=== PATIENT | male | born 1950 | race Caucasian/White ===

== ENCOUNTER → 2016-07-20 | Outpatient (CLI) | payer BC, MEDICARE, OTHER ==
[2016-07-20 09:06] LABS: MEAN CORPUSCULAR HEMOGLOBIN 32.5 pg (27.0-33.0); MEAN CORPUSCULAR HGB CONC 34.4 g/dl (32.0-36.5); MEAN CORPUSCULAR VOLUME 94.4 fl (80.0-96.0); RED CELL DISTRIBUTION WIDTH 12.1 % (11.5-14.5); WHITE BLOOD COUNT 8.1 K/mm3 (4.0-10.0)
[2016-07-20 09:25] LABS: ALBUMIN 3.7 GM/DL (3.2-5.2); ALBUMIN/GLOBULIN RATIO 1.23 (1.00-1.93); ALKALINE PHOSPHATASE 58 U/L (45-117); ALT/SGPT 21 U/L (12-78); ANION GAP 4 MEQ/L (8-16); AST/SGOT 17 U/L (15-37); BLOOD UREA NITROGEN 13 MG/DL (7-18); CALCIUM LEVEL 8.6 MG/DL (8.8-10.2); CARBON DIOXIDE LEVEL 31 MEQ/L (21-32); CHLORIDE LEVEL 105 MEQ/L (98-107); CHOLESTEROL LEVEL 185 MG/DL (<200); GLOMERULAR FILTRATION RATE > 60.0 (>49); GLUCOSE, FASTING 93 MG/DL (80-110); POTASSIUM SERUM 4.8 MEQ/L (3.5-5.1); SODIUM LEVEL 140 MEQ/L (136-145); TOTAL PROTEIN 6.7 GM/DL (6.4-8.2); TRIGLYCERIDES LEVEL 126 MG/DL (<150)
== END ==
LOC: M LAB 08:13
PROVIDERS: ATTEND Family Medicine
DX: I25.10 Atherosclerotic heart disease of native coronary artery without angina pectoris (principal)

== ENCOUNTER → 2017-03-08 | Outpatient (CLI) | payer BC, MEDICARE, OTHER ==
[~2017-03-08] MED LIST: ADV250INH INH; AMOX875T2 PO; BAYE325T13 PO; BIMA01SOL OU; BISO5TAB5 PO; ISOS30TAB PO; LOVA40TA PO; PEPC10TA6 PO; PERI4TAB PO; PLAV1TAB2 PO; POTA20TA6 PO; PROAAER10 INH; RANO5TAB PO; TORS5TAB2 PO
[2017-03-08 08:30] LABS: MEAN CORPUSCULAR HEMOGLOBIN 32.2 pg (27.0-33.0); MEAN CORPUSCULAR VOLUME 94.7 fl (80.0-96.0); PLATELET COUNT, AUTOMATED 196 10^3/uL (150-450); RED CELL DISTRIBUTION WIDTH 12.1 % (11.5-14.5); WHITE BLOOD COUNT 14.2 10^3/uL (4.0-10.0)
[2017-03-08 09:56] LABS: ALBUMIN 3.9 GM/DL (3.2-5.2); ALKALINE PHOSPHATASE 57 U/L (45-117); ALT/SGPT 22 U/L (12-78); ANION GAP 8 MEQ/L (8-16); AST/SGOT 11 U/L (15-37); BILIRUBIN,TOTAL 0.6 MG/DL (0.2-1.0); BLOOD UREA NITROGEN 14 MG/DL (7-18); CALCIUM LEVEL 8.7 MG/DL (8.8-10.2); CARBON DIOXIDE LEVEL 28 MEQ/L (21-32); CHLORIDE LEVEL 105 MEQ/L (98-107); CHOLESTEROL LEVEL 162 MG/DL (<200); CREATININE FOR GFR 1.13 MG/DL (0.70-1.30); GLOMERULAR FILTRATION RATE > 60.0 (>49); GLUCOSE, FASTING 107 MG/DL (80-110); POTASSIUM SERUM 4.6 MEQ/L (3.5-5.1); SODIUM LEVEL 141 MEQ/L (136-145); TOTAL PROTEIN 6.9 GM/DL (6.4-8.2); TRIGLYCERIDES LEVEL 86 MG/DL (<150)
== END ==
LOC: M LAB 07:38
PROVIDERS: ATTEND Family Medicine
DX: I25.10 Atherosclerotic heart disease of native coronary artery without angina pectoris (principal)
CPT/HCPCS: 36415; 80053; 80061; 85027; G0103

== ENCOUNTER 2017-03-24 23:34 | Inpatient (IN) | payer BC, MEDICARE, OTHER ==
[~2017-03-24] VITALS: Ht 165.1 cm; Wt 87.7 kg
[2017-03-24] MEDS ORDERED: PERI4TAB PO (23:49)
[2017-03-24] MEDS ORDERED: PROAAER10 INH (23:49)
[2017-03-24] MEDS ORDERED: TORS5TAB2 PO (23:49)
[2017-03-24] MEDS ORDERED: RANO5TAB PO (23:49)
[2017-03-24] MEDS ORDERED: BISO5TAB5 PO (23:49)
[2017-03-24] MEDS ORDERED: POTA20TA6 PO (23:49)
[2017-03-24] MEDS ORDERED: PEPC10TA6 PO (23:49)
[2017-03-24] MEDS ORDERED: ISOS30TAB PO (23:49)
[2017-03-24] MEDS ORDERED: LOVA40TA PO (23:49)
[2017-03-24] MEDS ORDERED: ADV250INH INH (23:49)
[2017-03-24] MEDS ORDERED: BIMA01SOL OU (23:49)
[2017-03-24] MEDS ORDERED: PLAV1TAB2 PO (23:49)
[2017-03-25] MEDS ORDERED: KETOROLAC 30 MG/ML VIAL (J1885) IV ONE (00:15)
[2017-03-25] MEDS ORDERED: LEVALBUTEROL 1.25 MG/0.5 ML CONCENTRATE NEB INH ONE (00:15)
[2017-03-25 00:34] LABS: BASO % 0.2 % (0.0-1.0); EOS # 0.2 10^3/uL (0.0-0.50); EOS % 1.9 % (0.0-3.0); IMMATURE GRANULOCYTE % 0.8 % (0-0); LYMPH # 1.8 10^3/uL (1.5-4.5); MEAN CORPUSCULAR HEMOGLOBIN 32.2 pg (27.0-33.0); MEAN CORPUSCULAR VOLUME 92.2 fl (80.0-96.0); MONO # 1.2 10^3/uL (0.0-0.8); MONO % 9.8 % (0.0-5.0); NEUTROPHILS # 9.2 10^3/uL (1.8-7.7); NEUTROPHILS % 73.3 % (36.0-66.0); PLATELET COUNT, AUTOMATED 213 10^3/uL (150-450); RED CELL DISTRIBUTION WIDTH 11.9 % (11.5-14.5); WHITE BLOOD COUNT 12.5 10^3/uL (4.0-10.0)
[2017-03-25 00:57] LABS: INR 0.93
[2017-03-25] MEDS ORDERED: METOCLOPRAMIDE INJ 10MG/2ML VIAL (J2765) IV ONE (01:00)
[2017-03-25] MEDS ORDERED: ISOVUE-370 76% 100ML VIAL (Q9967) As Ordered ONE (01:02)
[2017-03-25 01:03] LABS: ALBUMIN 3.3 GM/DL (3.2-5.2); ALBUMIN/GLOBULIN RATIO 1.03 (1.00-1.93); ALKALINE PHOSPHATASE 68 U/L (45-117); ALT/SGPT 25 U/L (12-78); ANION GAP 6 MEQ/L (8-16); AST/SGOT 15 U/L (7-37); BILIRUBIN,DIRECT 0.1 MG/DL (0.0-0.2); BILIRUBIN,TOTAL 0.5 MG/DL (0.2-1.0); BLOOD UREA NITROGEN 20 MG/DL (7-18); CALCIUM LEVEL 9.5 MG/DL (8.8-10.2); CARBON DIOXIDE LEVEL 29 MEQ/L (21-32); CHLORIDE LEVEL 102 MEQ/L (98-107); CREATININE FOR GFR 1.15 MG/DL (0.70-1.30); GLOMERULAR FILTRATION RATE > 60.0 (>49); GLUCOSE, FASTING 109 MG/DL (80-110); POTASSIUM SERUM 4.2 MEQ/L (3.5-5.1); SODIUM LEVEL 137 MEQ/L (136-145); TOTAL PROTEIN 6.5 GM/DL (6.4-8.2)
[2017-03-25 01:04] LABS: ABG BASE EXCESS 4.6 (-2.0-2.0); ABG HCO3 23.4 MEQ/L (22.0-26.0); ABG PARTIAL PRESSURE CO2 22.2 mmHg (35.0-45.0); ABG STANDARD HCO3 28.7 MEQ/L (22.0-26.0); ABG TOTAL CO2 24.1 MEQ/L (23.0-31.0)
[2017-03-25 01:06] LABS: ABG pH (ARTERIAL) 7.641 UNITS (7.350-7.450)
[2017-03-25] MEDS ORDERED: NS 1,000 ML IV ONE (01:45)
[2017-03-25] MEDS ORDERED: BAYE325T13 PO (02:20)
--- NOTE | 2017-03-25 02:40 | REPUSA ---
CLINICAL HISTORY: Abdominal pain. TECHNIQUE: Multiple axial and coronal CT images were obtained through the abdomen and pelvis after ad ministration of intravenous contrast material. COMMENTS: Mild peripancreatic fat stranding. Diffuse thickening and enhancement of the proximal small bowels. Surrounding inflammatory fat stranding. Moderate amount of fecal residue in the large bowels. Uncomplicated colonic diverticulosis. The liver is of uniform attenuation without mass or defect. There is no intra or extrahepatic biliary ductal dilatation. The spleen is normal. The gallbladder is within normal limits. There is no eviden ce of adrenal mass. Both kidneys demonstrate prompt and equal nephrograms. The kidneys are normal in size, shape and conf iguration. There is no evidence of renal or ureteral mass. No renal or ureteral calculi are identifie d. There is no hydroureter or hydronephrosis. No evidence for appendicitis. No evidence for small or large bowel obstruction. There is no evidence of abdominal ascites or lymphadenopathy. There is no evidence of intrinsic or extrinsic bladder mass. There is no pelvic ascites or lymphadeno darius. Images of the lung bases show no evidence of pleural or parenchymal mass. There are no pleural effusi ons. The bony structures are free of lytic or blastic lesions. IMPRESSION: Mild peripancreatic fat stranding. Probably mild pancreatitis. Diffuse thickening and enhancement of the proximal small bowels. Mild enteritis. Surrounding inflammatory fat stranding. No bowel perforation or pneumatosis intestinalis. Moderate amount of fecal residue in the large bowels. No fluid collection is seen. Thank you for your kind referral of this patient.
[2017-03-25 05:25] VITALS: BP 141/85
[2017-03-25] MEDS: KCL 10MEQ IN D5/0.45NS 1000ML 1,000 ML IV SCH ×2 (06:18→15:19)
[2017-03-25] MEDS: KETOROLAC 30 MG/ML VIAL (J1885) IV PRN ×3 (06:18→18:49)
--- NOTE | 2017-03-25 06:24 | HPE ---
DATE OF ADMISSION: 03/25/2017 PRIMARY CARE PHYSICIAN: Bipin White. PRINCIPAL BIOSTATISTICIAN: Dr. Teo Mason. CHIEF COMPLAINT: Left upper quadrant abdominal pain. HISTORY OF PRESENTING ILLNESS: 67-year-old male presents to the emergency room with acute onset of left upper quadrant pain occurring around 5 p.m. this afternoon described as sharp, achy and constant, radiating along the left flank without alleviating or exacerbating factors with associated nausea without vomiting, diaphoresis, left anterior chest pain. No medications were taken at home. No prior episodes. Denies any history of gallstones, reflux, recent trauma or history of familial hypertriglyceridemia. Patient was found to have a lipase level of 5980. Troponin was less than 0.02. EKG had no acute ST-T wave changes. CT abdomen and pelvis shows mild pancreatitis. Patient otherwise denies any fevers, chills, constipation, diarrhea, rhinorrhea, sore throat, earache, nasal congestion, headaches, eye pain, nasal discharge, shortness of breath, palpitations, lightheadedness, dizziness, cough, dysuria, urgency, frequency, fever, chills, upper and lower extremity paresthesias or weakness. Hospitalist service was called for admission for mild pancreatitis and further evaluation of patient's chest pain. PAST MEDICAL HISTORY: 1. Coronary artery disease (CAD), myocardial infarction (NV), coronary artery bypass graft (CABG). 2. Hypercholesterolemia. 3. Stent. 4. Asthma. 5. Adenomatous colonic polyp. 6. Gastrointestinal (GI) bleed after polypectomy. 7. BPH. 8. Osteoarthritis. 9. Right cranial nerve IV palsy. 10. DO NOT RESUSCITATE. ALLERGIES: To DEMEROL causing hallucinations, MORPHINE hallucinations, SIMVASTATIN, ATORVASTATIN myalgias, ZETIA myalgias. PAST SURGICAL HISTORY: 1. Cardiac catheterization with stent 1993, 2006, 2007, 2010. 2. CABG in 1993, July 2006, November 2007. 3. Colonoscopy by Dr. Jacobson December 2002, February 2006. FAMILY HISTORY: Father age 82 with heart attack. Mother age 84 with hypertension, Alzheimer's. Sibling, brother 11 months, questionable congenital heart disorder. SOCIAL HISTORY: Never a smoker, occasional wine. No recreational drug use. 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 . Patient is DO NOT RESUSCITATE filed at [facility] ([facility]), cardiology. HOME MEDICATIONS: - ProAir HFA two puffs every four as needed - aspirin 325 daily - bisoprolol 2.5 daily - Plavix 75 daily - isosorbide dinitrate 60 mg three times a day - lovastatin 80 mg every evening - potassium chloride 20 daily - Ranexa 500 twice a day - Advair Diskus one puff twice a day - torsemide 5 mg daily - Lumigan one drop both eyes nightly - famotidine 20 every evening - perindopril 4 mg every evening REVIEW OF SYSTEMS: Per history of present illness (HPI), 12-point system otherwise negative. PHYSICAL EXAMINATION: VITAL SIGNS: Temperature 97.7, pulse 75, respiratory rate 22, blood pressure 127/77, 95% on room air. GENERAL: Patient is awake, alert, oriented times three, answering questions appropriately. Anicteric sclerae. No jaundice. Pupils are round and reactive to light and accommodation. Extraocular muscles are intact. Normocephalic, atraumatic. No pharyngeal erythema, tonsillar exudates, cervical lymphadenopathy or jugular venous distention. No thyromegaly. LUNGS: Clear to auscultation. No wheezing, rales or rhonchi. HEART: S1, S2, sinus rhythm. ABDOMEN: Soft, tender left upper quadrant. No rebound, guarding. Positive bowel sounds times four quadrants. EXTREMITIES: No cyanosis, clubbing or pitting edema. SKIN: Patient has a well-healed mid sternal scar from prior CABG. LABORATORY DATA: White count 12.5, hemoglobin 15, hematocrit 45, platelet count 213. Sodium 137, potassium 4.2, chloride 102, bicarbonate 29, BUN 20, creatinine 1.15, glucose 109, calcium 9.5, total bilirubin 0.5, direct bilirubin 0.1, AST 15, ALT 25, alkaline phosphatase 68, total CK 70, MB fraction 1.1, troponin less than 0.02. C-reactive protein 1.71. BNP 66. Total protein 6.5, albumin 3.3, lipase 5980. TSH 2.56. 03/25/2017 respiratory panel human rhinovirus, enterovirus. Blood culture, sputum culture pending. CT abdomen and pelvis mild peripancreatic fat stranding, mild pancreatitis, diffuse thickening enhancement of the proximal small bowel with mild enteritis. No bowel perforation. Pneumatosis intestinalis, moderate amount of fecal residue in large bowel. No fluid collection. ASSESSMENT AND PLAN: This is a 67-year-old male with history of coronary artery disease (CAD), myocardial infarction (NV), stent, coronary artery bypass graft (CABG), dyslipidemia, asthma, arthritis, colonic polyps, gastrointestinal (GI) bleed, DO NOT RESUSCITATE, presents to the emergency room with acute onset of left upper quadrant pain described as sharp, radiating to the back, found to have a lipase level of 5980. Due to prior history of CAD, NV and CABG, patient was evaluated for acute coronary syndrome with negative troponin and no acute ST-T wave changes on EKG. Patient will be admitted as an inpatient for two midnights assigned to Dr. Bipin White 7 a.m. on 03/25/2017 for the following issues: 1. Acute pancreatitis. Patient will be kept nothing by mouth, intravenous (IV) fluids, monitor intake and output (I and O) and daily weight. As needed Toradol. Patient is allergic to opioids. Monitor for congestive heart failure. CT abdomen and pelvis showed no gallbladder wall thickening, dilatation or gallstones. Will check fasting lipid profile, but unlikely to have familial hypertriglyceridemia. No history of trauma or elevated calcium level. Denies any history of alcohol abuse. Monitor for symptomatic improvement. Advance diet as tolerated. If pain is resolved, recheck lipase level. 2. Chest pain, history of CAD, NV, CABG. Cycle cardiac markers every 8 hours. Repeat 12-lead EKG at 6 a.m. Continue home medications of aspirin, Ranexa, Plavix, isosorbide, and Zebeta. 3. History of asthma. No acute wheezing. Continue on Proventil as needed. 4. Hyperlipidemia. Continue on Zocor. Check fasting lipid profile. 5. History of GI bleed. No acute symptoms. Monitor hemoglobin and hematocrit if patient becomes symptomatic. 6. Deep venous thrombosis (DVT) prophylaxis on compression stockings. Patient will be assigned to Dr. Bipin White at 7 a.m. on 03/25/2017.
[2017-03-25] MEDS ORDERED: MIRALAX *UNIT DOSE* 17GM PACKET PO PRN (08:15)
[2017-03-25 08:28] LABS: BASO % 0.1 % (0.0-1.0); EOS # 0.2 10^3/uL (0.0-0.50); EOS % 1.3 % (0.0-3.0); IMMATURE GRANULOCYTE % 0.5 % (0-0); LYMPH # 1.8 10^3/uL (1.5-4.5); LYMPH % 14.8 % (24.0-44.0); MEAN CORPUSCULAR HEMOGLOBIN 32.2 pg (27.0-33.0); MEAN CORPUSCULAR HGB CONC 34.5 g/dl (32.0-36.5); MEAN CORPUSCULAR VOLUME 93.2 fl (80.0-96.0); MONO # 1.2 10^3/uL (0.0-0.8); MONO % 10.5 % (0.0-5.0); NEUTROPHILS # 8.6 10^3/uL (1.8-7.7); NEUTROPHILS % 72.8 % (36.0-66.0); PLATELET COUNT, AUTOMATED 183 10^3/uL (150-450); WHITE BLOOD COUNT 11.9 10^3/uL (4.0-10.0)
[2017-03-25] MEDS: CLOPIDOGREL 75 MG TAB PO SCH (08:31)
[2017-03-25] MEDS: RANOLAZINE 500 MG ER TAB PO SCH ×2 (08:31→20:51)
[2017-03-25] MEDS: POTASSIUM CHLORIDE 10 MEQ SR TABLET PO SCH (08:31)
[2017-03-25] MEDS: ISOSORBIDE DIN. (ISORDIL) 30 MG TAB PO SCH ×3 (08:31→20:51)
[2017-03-25] MEDS: BISOPROLOL FUMARATE 5 MG TAB PO SCH (08:32)
--- NOTE | 2017-03-25 08:33 | IPNPDOC ---
Subjective Date Seen The patient was seen on 03/25/17. Subjective Chief Complaint/HPI The patient is a 67-year-old male admitted with a reason for visit of Acute Pancreatitis. Events since last encounter continues with LUQ pain. Relieved with Toradol prn. Patient feels dehydrated, cracked lips, dry mouth. Receiving D5 1/2NS with 10 mew KCL at 100 cc per hour. Constitutional: Denies: Chills, Fever, Night Sweats ENT: Denies: Head Aches, Ear Pain, Dysphagia Skin: Denies: Rash, Lesions, Breakdown Pulmonary: Reports: Cough, Denies: Dyspnea Cardiovascular: Denies: Chest Pain, Palpitations, Orthopnea, Paroxysmal Noc. Dyspnea, Lt Headedness Gastrointestinal: Reports: Nausea, Abdominal Pain, Constipation, Denies: Vomiting, Diarrhea Genitourinary: Denies: Dysuria, Frequency, Incontinence, Retention Psych: Reports: Mood Normal, Denies: Depression, Memory Issues Objective Physical Examination General Exam: Positive: Alert, No Acute Distress Eye Exam: Positive: PERRLA, Conjunctiva & lids normal, EOMI, Negative: Sclera icteric ENT Exam: Positive: Atraumatic, Mucous membr. moist/pink, Pharynx Normal Neck Exam: Positive: Supple, Negative: JVD, thyromegaly Chest Exam: Positive: Clear to auscultation, Normal air movement Heart Exam: Positive: Rate Normal, Regular Rhythm, Normal S1, Normal S2, Negative: Murmurs, Rubs Abdomen Exam: Positive: BS Hypoactive, Soft, Tenderness (LUQ), Negative: Hepatospenomegaly Extremity Exam: Positive: Normal pulses, Negative: Clubbing, Cyanosis, Edema Skin Exam: Positive: Nl turgor and temperature, Negative: Rash, Breakdown Psych Exam: Positive: Mental status NL, Mood NL, Oriented x 3 Assessment /Plan Problems (1) Acute pancreatitis Status: Acute Problem Specific Plan: Monitor Clinically Problem Text: continue NPO and IVF. Repeat labs this am. (2) Fecal retention Problem Text: Noted on CT scan. Will give Miralax today. KUB (3) CAD (coronary artery disease) Problem Text: echo 2017: EF 60% On routine home medications. Monitor for fluid volume overload (4) HTN (hypertension) Status: Chronic Response to Treatment: Stable Problem Specific Plan: Monitor Clinically Plan/VTE VTE Prophylaxis Ordered?: Yes (Plavix) VS, I&O[facility] Signs/I&O Vital Signs Date Time Temp Pulse Resp B/P (MAP) Pulse Ox O2 Delivery O2 Flow Rate FiO2 03/25/17 05:25 97.2 69 18 141/85 (103) 94 Room Air Laboratory Data 24H LABS Laboratory Tests 2 03/25/17 00:22: Immature Granulocyte % (Auto) 0.8H, White Blood Count 12.5H, Red Blood Count 4.90, Hemoglobin 15.8, Hematocrit 45.2, Mean Corpuscular Volume 92.2, Mean Corpuscular Hemoglobin 32.2, Mean Corpuscular Hemoglobin Concent 35.0, Red Cell Distribution Width 11.9, Platelet Count 213, Neutrophils (%) (Auto) 73.3H, Lymphocytes (%) (Auto) 14.0L, Monocytes (%) (Auto) 9.8H, Eosinophils (%) (Auto) 1.9, Basophils (%) (Auto) 0.2, Neutrophils # (Auto) 9.2H, Lymphocytes # (Auto) 1.8, Monocytes # (Auto) 1.2H, Eosinophils # (Auto) 0.2, Basophils # (Auto) 0.0, Immature Granulocyte # (Auto) 0.1H, Nucleated Red Blood Cells % (auto) 0.0, Prothrombin Time 12.6, Prothromb Time International Ratio 0.93, Activated Partial Thromboplast Time 27.0, Anion Gap 6L, Glomerular Filtration Rate > 60.0 , Calcium Level 9.5, Aspartate Amino Transf (AST/SGOT) 15, Alanine Aminotransferase (ALT/SGPT) 25, Alkaline Phosphatase 68, Total Bilirubin 0.5, Direct Bilirubin 0.1, Total Creatine Kinase 70, Creatine Kinase MB 1.1, Creatine Kinase MB Relative Index 1.57, Troponin I < 0.02, C-Reactive Protein, Quantitative 1.71H, AH-Yru-P-Type Natriuretic Peptide 66, Total Protein 6.5, Albumin 3.3, Albumin/Globulin Ratio 1.03, Lipase 5980H, Thyroid Stimulating Hormone (TSH) 2.560, Free Thyroxine 1.00 03/25/17 00:46: Blood Gas Bicarbonate Standard 28.7H, Arterial Blood pH 7.641*H, Arterial Blood Partial Pressure CO2 22.2L, Arterial Blood Partial Pressure O2 102.0H, Arterial Blood Total CO2 24.1, Arterial Blood HCO3 23.4, Arterial Blood Base Excess 4.6H , Arterial Blood Oxygen Saturation 98.6 03/25/17 08:08: CBC/BMP Laboratory Tests 03/25/17 00:22 Red Blood Count 4.90, Mean Corpuscular Volume 92.2, Mean Corpuscular Hemoglobin 32.2, Mean Corpuscular Hemoglobin Concent 35.0, Red Cell Distribution Width 11.9 , Neutrophils (%) (Auto) 73.3 H, Lymphocytes (%) (Auto) 14.0 L, Monocytes (%) ( Auto) 9.8 H, Eosinophils (%) (Auto) 1.9, Basophils (%) (Auto) 0.2, Neutrophils # (Auto) 9.2 H, Lymphocytes # (Auto) 1.8, Monocytes # (Auto) 1.2 H, Eosinophils # (Auto) 0.2, Basophils # (Auto) 0.0 Microbiology Microbiology 03/25/17 Blood Culture, Received Pending 03/25/17 Blood Culture, Received Pending 03/25/17 Gram Stain, Received Pending 03/25/17 Sputum Culture, Received Pending 03/25/17 Respiratory Virus Panel (PCR) ([facility]ANKET) - Final, Complete Human Rhinovirus/Enterovirus Regla Suazo Mar 25, 2017 08:33
[2017-03-25 09:04] LABS: ALBUMIN 3.1 GM/DL (3.2-5.2); ALBUMIN/GLOBULIN RATIO 1.19 (1.00-1.93); ALKALINE PHOSPHATASE 54 U/L (45-117); ALT/SGPT 22 U/L (12-78); AMYLASE 142 U/L (25-115); ANION GAP 8 MEQ/L (8-16); AST/SGOT 9 U/L (7-37); BILIRUBIN,TOTAL 0.8 MG/DL (0.2-1.0); BLOOD UREA NITROGEN 19 MG/DL (7-18); CALCIUM LEVEL 8.7 MG/DL (8.8-10.2); CARBON DIOXIDE LEVEL 27 MEQ/L (21-32); CHLORIDE LEVEL 104 MEQ/L (98-107); CREATININE FOR GFR 1.07 MG/DL (0.70-1.30); GLOMERULAR FILTRATION RATE > 60.0 (>49); GLUCOSE, FASTING 109 MG/DL (80-110); POTASSIUM SERUM 4.2 MEQ/L (3.5-5.1); SODIUM LEVEL 139 MEQ/L (136-145); TOTAL PROTEIN 5.7 GM/DL (6.4-8.2)
--- NOTE | 2017-03-25 10:57 | REP ---
SUPINE ABDOMEN: 03/25/2017. Comparison: CT abdomen pelvis earlier today. Clinical history: Hypoactive bowel sounds, abdominal pain, constipation suggested on CT scan. Findings: There is some trace amount of contrast in the bladder and collecting system of the kidneys without obstruction. This is from IV contrast earlier today. Mild levoconvex curve of the lumbar spine with degenerative disc and facet changes from L3-4 through L5-S1. SI joints intact. Hips with minimal degenerative change. Moderate stool right colon with scattered stool elsewhere. This does not define constipation. No small bowel dilatation or other signs of obstruction. Impression: 1. No evidence for constipation. There is some moderate stool in the right colon with scattered stool and gas elsewhere without dilatation. No small bowel dilatation. 2. Degenerative changes lower lumbar spine and facets. 3. A few pelvic phleboliths but no significant abdominal or pelvic calcifications. Nothing acute. Signed by Meño Narvaez MD 03/25/2017 10:49 A
[2017-03-25 14:00] VITALS: BP 136/70
[2017-03-25] MEDS ORDERED: ONDANSETRON 4MG/2ML VIAL (J2405) As Ordered ONE (17:55)
[2017-03-25] MEDS: ONDANSETRON 4MG/2ML VIAL (J2405) IV PRN (17:59)
[2017-03-25] MEDS: SIMVASTATIN 40 MG TAB PO SCH (20:51)
[2017-03-25] MEDS: ASPIRIN 325 MG TAB PO SCH (20:51)
--- NOTE | 2017-03-25 21:16 | ECGEPIP ---
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
[2017-03-25 22:00] VITALS: BP 114/66
[2017-03-26] MEDS: ALBUTEROL 90 MCG/ACT 8GM HFA INHALER INH PRN ×2 (00:23→15:00)
[2017-03-26] MEDS: KETOROLAC 30 MG/ML VIAL (J1885) IV PRN ×4 (02:12→16:08)
[2017-03-26 06:00] VITALS: BP 128/79
[2017-03-26 07:07] LABS: BASO % 0.1 % (0.0-1.0); EOS # 0.2 10^3/uL (0.0-0.50); EOS % 1.7 % (0.0-3.0); IMMATURE GRANULOCYTE % 0.5 % (0-0); LYMPH # 1.3 10^3/uL (1.5-4.5); LYMPH % 9.7 % (24.0-44.0); MEAN CORPUSCULAR HEMOGLOBIN 32.2 pg (27.0-33.0); MEAN CORPUSCULAR HGB CONC 34.2 g/dl (32.0-36.5); MEAN CORPUSCULAR VOLUME 94.1 fl (80.0-96.0); MONO # 1.5 10^3/uL (0.0-0.8); MONO % 11.1 % (0.0-5.0); NEUTROPHILS # 10.2 10^3/uL (1.8-7.7); NEUTROPHILS % 76.9 % (36.0-66.0); PLATELET COUNT, AUTOMATED 166 10^3/uL (150-450); RED CELL DISTRIBUTION WIDTH 11.9 % (11.5-14.5); WHITE BLOOD COUNT 13.3 10^3/uL (4.0-10.0)
[2017-03-26 07:29] LABS: ALBUMIN 2.7 GM/DL (3.2-5.2); ALBUMIN/GLOBULIN RATIO 0.82 (1.00-1.93); ALKALINE PHOSPHATASE 46 U/L (45-117); ALT/SGPT 16 U/L (12-78); AMYLASE 73 U/L (25-115); ANION GAP 7 MEQ/L (8-16); AST/SGOT 12 U/L (7-37); BILIRUBIN,TOTAL 1.2 MG/DL (0.2-1.0); BLOOD UREA NITROGEN 16 MG/DL (7-18); CALCIUM LEVEL 8.5 MG/DL (8.8-10.2); CARBON DIOXIDE LEVEL 27 MEQ/L (21-32); CHLORIDE LEVEL 103 MEQ/L (98-107); CHOLESTEROL LEVEL 132 MG/DL (<200); CREATININE FOR GFR 1.14 MG/DL (0.70-1.30); GLOMERULAR FILTRATION RATE > 60.0 (>49); GLUCOSE, FASTING 89 MG/DL (80-110); POTASSIUM SERUM 4.6 MEQ/L (3.5-5.1); SODIUM LEVEL 137 MEQ/L (136-145); TRIGLYCERIDES LEVEL 100 MG/DL (<150)
[2017-03-26] MEDS: ALBUTEROL SULFATE 2.5 MG/0.5 ML INH NEB SOLN NEB SCH ×5 (08:00→23:08)
[2017-03-26] MEDS: RANOLAZINE 500 MG ER TAB PO SCH ×2 (08:46→21:26)
[2017-03-26] MEDS: ISOSORBIDE DIN. (ISORDIL) 30 MG TAB PO SCH ×3 (08:46→21:26)
[2017-03-26] MEDS: BISOPROLOL FUMARATE 5 MG TAB PO SCH (08:46)
[2017-03-26] MEDS: CLOPIDOGREL 75 MG TAB PO SCH (08:47)
[2017-03-26] MEDS: POTASSIUM CHLORIDE 10 MEQ SR TABLET PO SCH (08:47)
[2017-03-26] MEDS ORDERED: NITROGLYCERIN 0.4 MG SUBL TABLET SL PRN (09:15)
--- NOTE | 2017-03-26 09:29 | IPNPDOC ---
Subjective Date Seen The patient was seen on 03/26/17. Subjective Chief Complaint/HPI The patient is a 67-year-old male admitted with a reason for visit of Acute Pancreatitis. Events since last encounter c/o uncontrolled asthma. Has been out of his Advair for 3 days. Was previously on Prednisone by PCP for URI. Continues with nausea w/o vomiting. States urine output has slowed. Constitutional: Denies: Chills, Fever, Night Sweats Eyes: Denies: Pain, Vision change Skin: Denies: Rash, Lesions, Breakdown Pulmonary: Reports: Cough, Other Symptoms (SPB), Denies: Dyspnea Cardiovascular: Denies: Chest Pain, Palpitations, Orthopnea Gastrointestinal: Reports: Nausea, Abdominal Pain, Denies: Vomiting, Diarrhea, Constipation Genitourinary: Reports: Other Symptoms (decreased UO) Objective Physical Examination General Exam: Positive: Alert, No Acute Distress Eye Exam: Positive: PERRLA, Conjunctiva & lids normal, EOMI, Negative: Sclera icteric ENT Exam: Positive: Atraumatic, Mucous membr. moist/pink, Pharynx Normal Neck Exam: Positive: Supple, Negative: JVD, thyromegaly Chest Exam: Positive: Clear to auscultation, Normal air movement Heart Exam: Positive: Rate Normal, Regular Rhythm, Normal S1, Normal S2, Negative: Murmurs, Rubs Abdomen Exam: Positive: BS Hypoactive, Soft, Tenderness (LUQ), Negative: Hepatospenomegaly Extremity Exam: Positive: Normal pulses, Negative: Clubbing, Cyanosis, Edema Skin Exam: Positive: Nl turgor and temperature, Negative: Rash, Breakdown Psych Exam: Positive: Mental status NL, Mood NL, Oriented x 3 Assessment /Plan Problems (1) Acute pancreatitis Status: Acute Problem Specific Plan: Monitor Clinically Problem Text: 03/26: Lipase trending down. Now with elevated bilirubin. Will eval US abdomen. Attempted clears last night, unsuccessful due to nausea. Will resume IVF continue NPO and IVF. Repeat labs this am. (2) Rhinovirus Status: Acute (3) Asthma Status: Acute Problem Text: Albuterol q 4hrs scheduled and q 2hrs prn. Solumedrol 125 mg IV x 1 then 80mg IV q 8 hrs. (4) Fecal retention Problem Text: 03/26: multiple Bms yesterday. monitor. Noted on CT scan. Will give Miralax today. KUB (5) CAD (coronary artery disease) Problem Text: echo 2017: EF 60% On routine home medications. Monitor for fluid volume overload (6) HTN (hypertension) Status: Chronic Response to Treatment: Stable Problem Specific Plan: Monitor Clinically Plan/VTE VTE Prophylaxis Ordered?: Yes (Plavix) VS, I&O, 24H, Fishbone Vital Signs/I&O Vital Signs Date Time Temp Pulse Resp B/P (MAP) Pulse Ox O2 Delivery O2 Flow Rate FiO2 03/26/17 06:00 98.7 74 18 128/79 (95) 94 Room Air 98.7 Laboratory Data 24H LABS Laboratory Tests 2 03/25/17 15:56: Total Creatine Kinase 55, Creatine Kinase MB 1.0, Creatine Kinase MB Relative Index 1.81, Troponin I < 0.02 03/26/17 06:39: Immature Granulocyte % (Auto) 0.5H, White Blood Count 13.3H, Red Blood Count 4.41, Hemoglobin 14.2, Hematocrit 41.5L, Mean Corpuscular Volume 94.1, Mean Corpuscular Hemoglobin 32.2, Mean Corpuscular Hemoglobin Concent 34.2, Red Cell Distribution Width 11.9, Platelet Count 166, Neutrophils (%) (Auto) 76.9H, Lymphocytes (%) (Auto) 9.7L, Monocytes (%) (Auto) 11.1H, Eosinophils (%) (Auto) 1.7, Basophils (%) (Auto) 0.1, Neutrophils # (Auto) 10.2H, Lymphocytes # (Auto) 1.3L, Monocytes # (Auto) 1.5H, Eosinophils # (Auto) 0.2, Basophils # (Auto) 0.0 , Immature Granulocyte # (Auto) 0.1H, Nucleated Red Blood Cells % (auto) 0.0, Anion Gap 7L, Glomerular Filtration Rate > 60.0, Blood Urea Nitrogen 16, Creatinine 1.14, Sodium Level 137, Potassium Level 4.6, Chloride Level 103, Carbon Dioxide Level 27, Calcium Level 8.5L, Aspartate Amino Transf (AST/SGOT) 12, Alanine Aminotransferase (ALT/SGPT) 16, Alkaline Phosphatase 46, Total Bilirubin 1.2H, Triglycerides Level 100, LDL Cholesterol 65.0, Total Protein 6.0L, Albumin 2.7L, Albumin/Globulin Ratio 0.82L, Total Cholesterol 132, Non- HDL Cholesterol (LDL + VLDL) 85, Total HDL Cholesterol 47, Cholesterol/HDL Ratio 2.808, Amylase Level 73, Lipase 965H CBC/BMP Laboratory Tests 03/26/17 06:39 Red Blood Count 4.41, Mean Corpuscular Volume 94.1, Mean Corpuscular Hemoglobin 32.2, Mean Corpuscular Hemoglobin Concent 34.2, Red Cell Distribution Width 11.9 , Neutrophils (%) (Auto) 76.9 H, Lymphocytes (%) (Auto) 9.7 L, Monocytes (%) ( Auto) 11.1 H, Eosinophils (%) (Auto) 1.7, Basophils (%) (Auto) 0.1, Neutrophils # (Auto) 10.2 H, Lymphocytes # (Auto) 1.3 L, Monocytes # (Auto) 1.5 H, Eosinophils # (Auto) 0.2, Basophils # (Auto) 0.0, Calcium Level 8.5 L, Aspartate Amino Transf (AST/SGOT) 12, Alanine Aminotransferase (ALT/SGPT) 16, Alkaline Phosphatase 46, Total Bilirubin 1.2 H, Triglycerides Level 100, LDL Cholesterol 65.0, Total Protein 6.0 L, Albumin 2.7 L Microbiology Microbiology 03/25/17 Blood Culture - Preliminary, Resulted No growth after 24 hours . All specim... 03/25/17 Blood Culture - Preliminary, Resulted No growth after 24 hours . All specim... 03/25/17 Gram Stain - Final, Resulted 03/25/17 Sputum Culture, Resulted Pending 03/25/17 Respiratory Virus Panel (PCR) ([facility]ANK[facility]) - Final, Complete Human Rhinovirus/Enterovirus Regla Suazo [facility] Mar 26, 2017 09:29
[2017-03-26] MEDS ORDERED: methylPREDNISolone INJ 125 MG/2 ML VIAL (J2930) IV ONE (09:30)
[2017-03-26] MEDS: ADVAIR HFA 230/21MCG INHALER INH SCH ×2 (09:42→20:05)
[2017-03-26] MEDS ORDERED: ALBUTEROL SULFATE 2.5 MG/0.5 ML INH NEB SOLN NEB PRN (09:45)
[2017-03-26] MEDS: D5W/0.45% SODIUM CHLORIDE 1,000 ML IV SCH ×2 (12:45→21:27)
--- NOTE | 2017-03-26 13:50 | REP ---
Complete abdominal sonography: History: Acute pancreatitis. Elevated white blood cell count and bilirubin. Findings: Scanning through right upper quadrant of the abdomen demonstrates normal sized thin-walled gallbladder without evidence of stone or polyp. Common bile duct is normal measuring 0.4 cm in greatest diameter. No intrahepatic biliary ductal dilation is seen. No focal liver lesion is appreciated. Limited views of the pancreas show no abnormality. Pancreas is partially obscured by abdominal gas. There is no evidence of ascites. Normal homogeneous spleen is seen measuring 6 cm in greatest diameter. A normal caliber aorta is seen, 2.6 cm in AP dimension. There is no evidence of hydronephrosis or mass. Possible renovascular arterial calcification is seen bilaterally. The right kidney measures 9.7 x 6.3 x 6.6 cm. Left renal dimensions are 10.6 x 5.4 x 6.6 cm. Impression: Pancreas is largely obscured by abdominal gas. No other significant abnormality. Signed by Gurpreet Castillo MD 03/26/2017 02:13 P
[2017-03-26 14:00] VITALS: BP 99/73
[2017-03-26] MEDS: ONDANSETRON 4MG/2ML VIAL (J2405) IV PRN (16:07)
[2017-03-26] MEDS: methylPREDNISolone INJ 125 MG/2 ML VIAL (J2930) IV SCH (18:09)
[2017-03-26] MEDS: SIMVASTATIN 40 MG TAB PO SCH (21:26)
[2017-03-26] MEDS: ASPIRIN 325 MG TAB PO SCH (21:26)
[2017-03-26 22:00] VITALS: BP 108/67
[2017-03-27] MEDS: methylPREDNISolone INJ 125 MG/2 ML VIAL (J2930) IV SCH (02:19)
[2017-03-27] MEDS: ALBUTEROL SULFATE 2.5 MG/0.5 ML INH NEB SOLN NEB SCH ×5 (03:05→20:00)
[2017-03-27 06:00] VITALS: BP 121/73
[2017-03-27 06:34] LABS: BASO % 0.1 % (0.0-1.0); IMMATURE GRANULOCYTE % 0.5 % (0-0); LYMPH # 0.6 10^3/uL (1.5-4.5); LYMPH % 3.9 % (24.0-44.0); MEAN CORPUSCULAR HEMOGLOBIN 32.2 pg (27.0-33.0); MEAN CORPUSCULAR HGB CONC 34.4 g/dl (32.0-36.5); MEAN CORPUSCULAR VOLUME 93.6 fl (80.0-96.0); MONO # 0.4 10^3/uL (0.0-0.8); MONO % 2.3 % (0.0-5.0); NEUTROPHILS # 14.4 10^3/uL (1.8-7.7); NEUTROPHILS % 93.2 % (36.0-66.0); PLATELET COUNT, AUTOMATED 191 10^3/uL (150-450); RED CELL DISTRIBUTION WIDTH 11.7 % (11.5-14.5); WHITE BLOOD COUNT 15.5 10^3/uL (4.0-10.0)
[2017-03-27 06:51] LABS: ALBUMIN 2.8 GM/DL (3.2-5.2); ALBUMIN/GLOBULIN RATIO 0.68 (1.00-1.93); ALKALINE PHOSPHATASE 52 U/L (45-117); ALT/SGPT 19 U/L (12-78); ANION GAP 5 MEQ/L (8-16); AST/SGOT 10 U/L (7-37); BILIRUBIN,TOTAL 0.7 MG/DL (0.2-1.0); BLOOD UREA NITROGEN 18 MG/DL (7-18); CALCIUM LEVEL 8.3 MG/DL (8.8-10.2); CARBON DIOXIDE LEVEL 27 MEQ/L (21-32); CHLORIDE LEVEL 104 MEQ/L (98-107); CREATININE FOR GFR 1.11 MG/DL (0.70-1.30); GLOMERULAR FILTRATION RATE > 60.0 (>49); GLUCOSE, FASTING 175 MG/DL (80-110); SODIUM LEVEL 136 MEQ/L (136-145); TOTAL PROTEIN 6.9 GM/DL (6.4-8.2)
[2017-03-27] MEDS: ADVAIR HFA 230/21MCG INHALER INH SCH ×2 (07:22→19:41)
[2017-03-27] MEDS: D5W/0.45% SODIUM CHLORIDE 1,000 ML IV SCH (08:39)
[2017-03-27 10:00] VITALS: BP 117/69
--- NOTE | 2017-03-27 10:38 | IPNPDOC ---
Subjective Date Seen The patient was seen on 03/27/17. Subjective Chief Complaint/HPI The patient is a 67-year-old male admitted with a reason for visit of Acute Pancreatitis. Events since last encounter Passing flatus. mild abdominal bloating. Ambulating w/o difficulty. Started clear liquids this am, tolerated well. Constitutional: Denies: Chills, Fever, Night Sweats Pulmonary: Denies: Dyspnea, Cough Cardiovascular: Denies: Chest Pain, Palpitations, Orthopnea, Paroxysmal Noc. Dyspnea, Lt Headedness Gastrointestinal: Denies: Nausea, Vomiting, Abdominal Pain, Diarrhea, Constipation Genitourinary: Denies: Dysuria, Frequency, Incontinence, Retention Psych: Reports: Mood Normal, Denies: Depression, Memory Issues Objective Physical Examination General Exam: Positive: Alert, No Acute Distress Eye Exam: Positive: PERRLA, Conjunctiva & lids normal, EOMI, Negative: Sclera icteric ENT Exam: Positive: Atraumatic, Mucous membr. moist/pink, Pharynx Normal Neck Exam: Positive: Supple, Negative: JVD, thyromegaly Chest Exam: Positive: Clear to auscultation, Normal air movement Heart Exam: Positive: Rate Normal, Regular Rhythm, Normal S1, Normal S2, Negative: Murmurs, Rubs Abdomen Exam: Positive: BS Hypoactive, Soft, Negative: Tenderness, Hepatospenomegaly Extremity Exam: Positive: Normal pulses, Negative: Clubbing, Cyanosis, Edema Skin Exam: Positive: Nl turgor and temperature, Negative: Rash, Breakdown Psych Exam: Positive: Mental status NL, Mood NL, Oriented x 3 Assessment /Plan Problems (1) Acute pancreatitis Status: Acute Problem Specific Plan: Monitor Clinically Problem Text: 03/27/17: improving symptoms. Advance diet. Probable DC in am. 03/26: Lipase trending down. Now with elevated bilirubin. Will eval US abdomen. Attempted clears last night, unsuccessful due to nausea. Will resume IVF continue NPO and IVF. Repeat labs this am. (2) Rhinovirus Status: Acute Response to Treatment: Improving (3) Asthma Status: Acute Problem Text: wean down to prednisone. Albuterol prn with relief. Albuterol q 4hrs scheduled and q 2hrs prn. Solumedrol 125 mg IV x 1 then 80mg IV q 8 hrs. (4) Fecal retention Problem Text: 03/27/17: + faltus, advance diet. Stool regimen ordered. 03/26: multiple Bms yesterday. monitor. Noted on CT scan. Will give Miralax today. KUB (5) CAD (coronary artery disease) Problem Text: echo 2017: EF 60% On routine home medications. Monitor for fluid volume overload (6) HTN (hypertension) Status: Chronic Response to Treatment: Stable Problem Specific Plan: Monitor Clinically Plan/VTE VTE Prophylaxis Ordered?: Yes (Plavix) VS, I&O, 24H, Fishbone Vital Signs/I&O Vital Signs Date Time Temp Pulse Resp B/P (MAP) Pulse Ox O2 Delivery O2 Flow Rate FiO2 03/27/17 06:00 97.3 74 19 121/73 (89) 95 Room Air I&O- Last 24 Hours up to 6 AM 03/28/17 06:00 Intake Total 480 ml Output Total 300 ml Balance 180 ml Laboratory Data 24H LABS Laboratory Tests 2 03/27/17 06:12: Immature Granulocyte % (Auto) 0.5H, White Blood Count 15.5H, Red Blood Count 4.35, Hemoglobin 14.0, Hematocrit 40.7L, Mean Corpuscular Volume 93.6, Mean Corpuscular Hemoglobin 32.2, Mean Corpuscular Hemoglobin Concent 34.4, Red Cell Distribution Width 11.7, Platelet Count 191, Neutrophils (%) (Auto) 93.2H, Lymphocytes (%) (Auto) 3.9L, Monocytes (%) (Auto) 2.3, Eosinophils (%) (Auto) 0.0, Basophils (%) (Auto) 0.1, Neutrophils # (Auto) 14.4H, Lymphocytes # (Auto) 0.6L, Monocytes # (Auto) 0.4, Eosinophils # (Auto) 0.0, Basophils # (Auto) 0.0, Immature Granulocyte # (Auto) 0.1H, Nucleated Red Blood Cells % (auto) 0.0, Anion Gap 5L, Glomerular Filtration Rate > 60.0, Blood Urea Nitrogen 18, Creatinine 1.11, Sodium Level 136, Potassium Level 4.0, Chloride Level 104, Carbon Dioxide Level 27, Calcium Level 8.3L, Aspartate Amino Transf (AST/SGOT) 10, Alanine Aminotransferase (ALT/SGPT) 19, Alkaline Phosphatase 52, Total Bilirubin 0.7, Total Protein 6.9, Albumin 2.8L, Albumin/Globulin Ratio 0.68L CBC/BMP Laboratory Tests 03/27/17 06:12 Red Blood Count 4.35, Mean Corpuscular Volume 93.6, Mean Corpuscular Hemoglobin 32.2, Mean Corpuscular Hemoglobin Concent 34.4, Red Cell Distribution Width 11.7 , Neutrophils (%) (Auto) 93.2 H, Lymphocytes (%) (Auto) 3.9 L, Monocytes (%) ( Auto) 2.3, Eosinophils (%) (Auto) 0.0, Basophils (%) (Auto) 0.1, Neutrophils # ( Auto) 14.4 H, Lymphocytes # (Auto) 0.6 L, Monocytes # (Auto) 0.4, Eosinophils # (Auto) 0.0, Basophils # (Auto) 0.0, Calcium Level 8.3 L, Aspartate Amino Transf (AST/SGOT) 10, Alanine Aminotransferase (ALT/SGPT) 19, Alkaline Phosphatase 52, Total Bilirubin 0.7, Total Protein 6.9, Albumin 2.8 L Microbiology Microbiology 03/25/17 Blood Culture - Preliminary, Resulted No Growth after 48 hours. All Specime... 03/25/17 Blood Culture - Preliminary, Resulted No Growth after 48 hours. All Specime... 03/25/17 Gram Stain - Final, Resulted 03/25/17 Sputum Culture, Resulted Pending 03/25/17 Respiratory Virus Panel (PCR) (SANKET) - Final, Complete Human Rhinovirus/Enterovirus Regla Suazo PRODUCTION LINE WORKER Mar 27, 2017 10:38
[2017-03-27] MEDS: predniSONE 20 MG TAB PO SCH ×2 (11:27→20:52)
[2017-03-27] MEDS: ISOSORBIDE DIN. (ISORDIL) 30 MG TAB PO SCH ×3 (11:30→20:51)
[2017-03-27] MEDS: RANOLAZINE 500 MG ER TAB PO SCH ×2 (11:31→20:52)
[2017-03-27] MEDS: POTASSIUM CHLORIDE 10 MEQ SR TABLET PO SCH (11:31)
[2017-03-27] MEDS: CLOPIDOGREL 75 MG TAB PO SCH (11:31)
--- NOTE | 2017-03-27 13:53 | REP ---
Clinical: Acute chest pain . Comparison: 03/18/2017 . Findings: The mediastinum and cardiac silhouette are stable and within normal limits for portable technique. Evidence for prior sternotomy and CABG again noted. The lung sun are clear without acute consolidation, effusion, or pneumothorax. Skeletal structures are intact. Impression: No acute cardiopulmonary process appreciated. Signed by Dwayne Dolan MD 03/25/2017 01:29 A
[2017-03-27 14:00] VITALS: BP 126/75
[2017-03-27] MEDS: AUGMENTIN 875 MG TAB PO SCH ×2 (14:18→20:51)
[2017-03-27] MEDS: BISOPROLOL FUMARATE 5 MG TAB PO SCH (20:52)
[2017-03-27] MEDS: ASPIRIN 325 MG TAB PO SCH (20:52)
[2017-03-27] MEDS: SIMVASTATIN 40 MG TAB PO SCH (20:53)
[2017-03-27 22:00] VITALS: BP 140/84
[2017-03-28] MEDS: ALBUTEROL 90 MCG/ACT 8GM HFA INHALER INH PRN ×3 (00:09→23:22)
[2017-03-28] MEDS: ALBUTEROL SULFATE 2.5 MG/0.5 ML INH NEB SOLN NEB SCH ×7 (04:00→23:22)
[2017-03-28 06:00] VITALS: BP 103/53
[2017-03-28 07:22] LABS: BASO % 0.1 % (0.0-1.0); IMMATURE GRANULOCYTE % 1.1 % (0-0); LYMPH # 0.7 10^3/uL (1.5-4.5); LYMPH % 3.1 % (24.0-44.0); MEAN CORPUSCULAR HGB CONC 34.1 g/dl (32.0-36.5); MEAN CORPUSCULAR VOLUME 93.8 fl (80.0-96.0); MONO # 0.8 10^3/uL (0.0-0.8); MONO % 3.6 % (0.0-5.0); NEUTROPHILS # 20.5 10^3/uL (1.8-7.7); NEUTROPHILS % 92.1 % (36.0-66.0); PLATELET COUNT, AUTOMATED 220 10^3/uL (150-450); WHITE BLOOD COUNT 22.2 10^3/uL (4.0-10.0)
[2017-03-28 07:47] LABS: ALBUMIN 2.8 GM/DL (3.2-5.2); ALBUMIN/GLOBULIN RATIO 0.74 (1.00-1.93); ALKALINE PHOSPHATASE 58 U/L (45-117); ALT/SGPT 24 U/L (12-78); ANION GAP 9 MEQ/L (8-16); AST/SGOT 11 U/L (7-37); BILIRUBIN,TOTAL 0.4 MG/DL (0.2-1.0); BLOOD UREA NITROGEN 20 MG/DL (7-18); CALCIUM LEVEL 8.5 MG/DL (8.8-10.2); CARBON DIOXIDE LEVEL 23 MEQ/L (21-32); CHLORIDE LEVEL 109 MEQ/L (98-107); CREATININE FOR GFR 1.12 MG/DL (0.70-1.30); GLOMERULAR FILTRATION RATE > 60.0 (>49); GLUCOSE, FASTING 153 MG/DL (80-110); POTASSIUM SERUM 4.5 MEQ/L (3.5-5.1); SODIUM LEVEL 141 MEQ/L (136-145); TOTAL PROTEIN 6.6 GM/DL (6.4-8.2)
[2017-03-28] MEDS: ADVAIR HFA 230/21MCG INHALER INH SCH ×2 (08:01→19:26)
[2017-03-28 08:15] VITALS: BP 110/54
[2017-03-28] MEDS: AUGMENTIN 875 MG TAB PO SCH ×2 (09:49→21:46)
[2017-03-28] MEDS: ISOSORBIDE DIN. (ISORDIL) 30 MG TAB PO SCH ×3 (09:49→21:47)
[2017-03-28] MEDS: CLOPIDOGREL 75 MG TAB PO SCH (09:49)
[2017-03-28] MEDS: predniSONE 20 MG TAB PO SCH ×2 (09:49→21:46)
[2017-03-28] MEDS: RANOLAZINE 500 MG ER TAB PO SCH ×2 (09:49→21:46)
[2017-03-28] MEDS: POTASSIUM CHLORIDE 10 MEQ SR TABLET PO SCH (09:49)
--- NOTE | 2017-03-28 12:20 | IPNPDOC ---
Subjective Date Seen The patient was seen on 03/28/17. Subjective Chief Complaint/HPI The patient is a 67-year-old male admitted with a reason for visit of Acute Pancreatitis. Events since last encounter Patient tolerating regular diet. no n/v/d. Developed 9/10 CP overnight that woke him from sleep. Took NTG x 1 with relief. Event not reported to medical provider quality control lead. Troponin added to am labs: elevated at 0.14. ENT: Denies: Head Aches, Ear Pain, Dysphagia Skin: Denies: Rash, Lesions, Breakdown Pulmonary: Reports: Dyspnea Cardiovascular: Reports: Chest Pain, Denies: Palpitations, Orthopnea, Paroxysmal Noc. Dyspnea, Lt Headedness Gastrointestinal: Denies: Nausea, Vomiting, Abdominal Pain, Diarrhea, Constipation Psych: Reports: Mood Normal, Denies: Depression, Memory Issues Objective Physical Examination General Exam: Positive: Alert, No Acute Distress Eye Exam: Positive: PERRLA, Conjunctiva & lids normal, EOMI, Negative: Sclera icteric ENT Exam: Positive: Atraumatic, Mucous membr. moist/pink, Pharynx Normal Neck Exam: Positive: Supple, Negative: JVD, thyromegaly Chest Exam: Positive: Clear to auscultation, Normal air movement Heart Exam: Positive: Rate Normal, Regular Rhythm, Normal S1, Normal S2, Negative: Murmurs, Rubs Abdomen Exam: Positive: Normal bowel sounds, Soft, Negative: Tenderness, Hepatospenomegaly Extremity Exam: Positive: Normal pulses, Negative: Clubbing, Cyanosis, Edema Skin Exam: Positive: Nl turgor and temperature, Negative: Rash, Breakdown Psych Exam: Positive: Mental status NL, Mood NL, Oriented x 3 Assessment /Plan Problems (1) Chest pain Status: Acute Problem Text: slight elevation in troponin noted at 0.14. EKG: sinus bradycardia. Will perform serial cardiac enzymes and monitor on tele for 24 hours. has known CAD> Echo ordered. (2) Acute pancreatitis Status: Acute Problem Specific Plan: Monitor Clinically Problem Text: 03/27/17: improving symptoms. Advance diet. Probable DC in am. 03/26: Lipase trending down. Now with elevated bilirubin. Will eval US abdomen. Attempted clears last night, unsuccessful due to nausea. Will resume IVF continue NPO and IVF. Repeat labs this am. (3) Rhinovirus Status: Acute Response to Treatment: Improving (4) Asthma Status: Acute Problem Text: wean down to prednisone. Albuterol prn with relief. Albuterol q 4hrs scheduled and q 2hrs prn. Solumedrol 125 mg IV x 1 then 80mg IV q 8 hrs. (5) Fecal retention Problem Text: 03/27/17: + faltus, advance diet. Stool regimen ordered. 03/26: multiple Bms yesterday. monitor. Noted on CT scan. Will give Miralax today. KUB (6) CAD (coronary artery disease) Problem Text: echo 2017: EF 60% On routine home medications. Monitor for fluid volume overload (7) HTN (hypertension) Status: Chronic Response to Treatment: Stable Problem Specific Plan: Monitor Clinically Plan/VTE VTE Prophylaxis Ordered?: Yes (Plavix) VS, I&O, 24H, Fishbone Vital Signs/I&O Vital Signs Date Time Temp Pulse Resp B/P (MAP) Pulse Ox O2 Delivery O2 Flow Rate FiO2 03/28/17 09:49 110/54 03/28/17 06:00 97.8 63 20 100 03/27/17 21:20 Room Air I&O- Last 24 Hours up to 6 AM 03/29/17 06:00 Intake Total 300 ml Output Total 0 ml Balance 300 ml Laboratory Data 24H LABS Laboratory Tests 2 03/28/17 06:59: Immature Granulocyte % (Auto) 1.1H, White Blood Count 22.2H, Red Blood Count 4.37, Hemoglobin 14.0, Hematocrit 41.0L, Mean Corpuscular Volume 93.8, Mean Corpuscular Hemoglobin 32.0, Mean Corpuscular Hemoglobin Concent 34.1, Red Cell Distribution Width 12.0, Platelet Count 220, Neutrophils (%) (Auto) 92.1H, Lymphocytes (%) (Auto) 3.1L, Monocytes (%) (Auto) 3.6, Eosinophils (%) (Auto) 0.0, Basophils (%) (Auto) 0.1, Neutrophils # (Auto) 20.5H, Lymphocytes # (Auto) 0.7L, Monocytes # (Auto) 0.8, Eosinophils # (Auto) 0.0, Basophils # (Auto) 0.0, Immature Granulocyte # (Auto) 0.2H, Nucleated Red Blood Cells % (auto) 0.0, Anion Gap 9, Glomerular Filtration Rate > 60.0, Blood Urea Nitrogen 20H, Creatinine 1.12, Sodium Level 141, Potassium Level 4.5, Chloride Level 109H, Carbon Dioxide Level 23, Calcium Level 8.5L, Aspartate Amino Transf (AST/SGOT) 11, Alanine Aminotransferase (ALT/SGPT) 24, Alkaline Phosphatase 58, Total Bilirubin 0.4, Total Protein 6.6, Albumin 2.8L, Troponin I 0.14H, Albumin/ Globulin Ratio 0.74L CBC/BMP Laboratory Tests 03/28/17 06:59 Red Blood Count 4.37, Mean Corpuscular Volume 93.8, Mean Corpuscular Hemoglobin 32.0, Mean Corpuscular Hemoglobin Concent 34.1, Red Cell Distribution Width 12.0 , Neutrophils (%) (Auto) 92.1 H, Lymphocytes (%) (Auto) 3.1 L, Monocytes (%) ( Auto) 3.6, Eosinophils (%) (Auto) 0.0, Basophils (%) (Auto) 0.1, Neutrophils # ( Auto) 20.5 H, Lymphocytes # (Auto) 0.7 L, Monocytes # (Auto) 0.8, Eosinophils # (Auto) 0.0, Basophils # (Auto) 0.0, Calcium Level 8.5 L, Aspartate Amino Transf (AST/SGOT) 11, Alanine Aminotransferase (ALT/SGPT) 24, Alkaline Phosphatase 58, Total Bilirubin 0.4, Total Protein 6.6, Albumin 2.8 L Microbiology Microbiology 03/25/17 Blood Culture - Preliminary, Resulted No Growth after 72 hours. All specime... 03/25/17 Blood Culture - Preliminary, Resulted No Growth after 72 hours. All specime... 03/25/17 Gram Stain - Final, Complete 03/25/17 Sputum Culture - Final, Complete Haemophilus Influenzae 03/25/17 Respiratory Virus Panel (PCR) (SANKET) - Final, Complete Human Rhinovirus/Enterovirus Regla Suazo PERIPATOLOGIST Mar 28, 2017 12:20
[2017-03-28 14:00] VITALS: BP 131/79
[2017-03-28] MEDS: TORSEMIDE 5MG TABLET PO SCH (16:28)
--- NOTE | 2017-03-28 19:10 | REP ---
CHEST X-RAY PA AND LATERAL: 03/28/2017. Comparison: Portable chest 03/25/2017, chest x-ray 08/31/2014. Clinical history: Leukocytosis, productive cough. Sternotomy wires are noted. EKG leads overlie the chest. Clips in the mediastinum are again seen. There appear to be some coronary stents and vascular calcifications. Heart not enlarged. The aorta is calcified at the arch without aneurysm. Airway midline. No widening the mediastinum. No effusion, lateral pleural thickening or apical findings. I see no consolidation, atelectasis or mass. Bony thorax shows no focal lesion but marginal osteophytes present. There are cuffed bronchi in the perihilar regions that could reflect bronchitis or reactive airway disease. There are no compression deformities in the spine. Clavicles, scapula and ribs intact. No free air. Impression: 1. Sternotomy wires and mediastinal clips unchanged. 2. No cardiomegaly, edema, effusion or definite acute infiltrate. There are cuffed bronchi in the perihilar regions that may reflect reactive airway disease or bronchitis. Signed by Meño Narvaez MD 03/28/2017 07:50 P
--- NOTE | 2017-03-28 20:13 | ECGEPIP ---
Stationary ECG Study [facility] Test Date: 2017-03-28 Pat Name: MAIKOL SYLVESTER Department: Room: [place] [address] Gender: M Training Facilitator: MICHEL : 1950 Requested By: Regla FELIX Order Number: [id number] Reading MD: Aranza Gomes Measurements Intervals [place] Rate: 55 P: 43 VT: 161 QRS: 24 QRSD: 102 T: 55 QT: 435 QTc: 419 Interpretive Statements SINUS BRADYCARDIA SIMILAR TO 03/24/17 Electronically Signed On 03-28-2017 20:12:42 EST by Aranza Gomes
[2017-03-28] MEDS: ASPIRIN 325 MG TAB PO SCH (21:46)
[2017-03-28] MEDS: SIMVASTATIN 40 MG TAB PO SCH (21:46)
[2017-03-28] MEDS: BISOPROLOL FUMARATE 5 MG TAB PO SCH (21:47)
[2017-03-28 22:00] VITALS: BP 115/66
[2017-03-29 06:00] VITALS: BP 124/79
[2017-03-29 07:02] LABS: BASO % 0.1 % (0.0-1.0); IMMATURE GRANULOCYTE % 1.1 % (0-0); LYMPH % 5.5 % (24.0-44.0); MEAN CORPUSCULAR HEMOGLOBIN 32.3 pg (27.0-33.0); MEAN CORPUSCULAR HGB CONC 33.9 g/dl (32.0-36.5); MEAN CORPUSCULAR VOLUME 95.3 fl (80.0-96.0); MONO # 0.9 10^3/uL (0.0-0.8); MONO % 4.7 % (0.0-5.0); NEUTROPHILS # 16.4 10^3/uL (1.8-7.7); NEUTROPHILS % 88.6 % (36.0-66.0); PLATELET COUNT, AUTOMATED 210 10^3/uL (150-450); RED CELL DISTRIBUTION WIDTH 12.2 % (11.5-14.5); WHITE BLOOD COUNT 18.5 10^3/uL (4.0-10.0)
[2017-03-29] MEDS: ADVAIR HFA 230/21MCG INHALER INH SCH (07:17)
[2017-03-29] MEDS: ALBUTEROL SULFATE 2.5 MG/0.5 ML INH NEB SOLN NEB SCH ×3 (07:19→15:10)
[2017-03-29 07:22] LABS: ALBUMIN 2.7 GM/DL (3.2-5.2); ALBUMIN/GLOBULIN RATIO 0.77 (1.00-1.93); ALKALINE PHOSPHATASE 47 U/L (45-117); ALT/SGPT 26 U/L (12-78); ANION GAP 4 MEQ/L (8-16); AST/SGOT 12 U/L (7-37); BILIRUBIN,TOTAL 0.5 MG/DL (0.2-1.0); BLOOD UREA NITROGEN 21 MG/DL (7-18); CALCIUM LEVEL 8.2 MG/DL (8.8-10.2); CARBON DIOXIDE LEVEL 27 MEQ/L (21-32); CHLORIDE LEVEL 109 MEQ/L (98-107); CREATININE FOR GFR 1.05 MG/DL (0.70-1.30); GLOMERULAR FILTRATION RATE > 60.0 (>49); GLUCOSE, FASTING 122 MG/DL (80-110); POTASSIUM SERUM 4.9 MEQ/L (3.5-5.1); SODIUM LEVEL 140 MEQ/L (136-145); TOTAL PROTEIN 6.2 GM/DL (6.4-8.2)
[2017-03-29] MEDS: ISOSORBIDE DIN. (ISORDIL) 30 MG TAB PO SCH ×2 (08:31→09:04)
--- NOTE | 2017-03-29 08:35 | IPNPDOC ---
Subjective Date Seen The patient was seen on 03/29/17. Subjective Chief Complaint/HPI The patient is a 67-year-old male admitted with a reason for visit of Acute Pancreatitis. Events since last encounter significant bradycardia noted on telemetry. Patient awake at time of event and asymptomatic. No further episodes of Chest pain. Called patient's manager roofing for consult. Advised to stop bisoprolol and arrange transfer to [facility] for cardiac catheterization. Dr Mason declined evaluating patient or providing formal consult. [facility] contacted and in process of arranging transfer. Pulmonary: Reports: Dyspnea, Cough Cardiovascular: Denies: Chest Pain, Edema, Lt Headedness Objective Physical Examination General Exam: Positive: Alert, No Acute Distress Eye Exam: Positive: PERRLA, Conjunctiva & lids normal, EOMI, Negative: Sclera icteric ENT Exam: Positive: Atraumatic, Mucous membr. moist/pink, Pharynx Normal Neck Exam: Positive: Supple, Negative: JVD, thyromegaly Chest Exam: Positive: Clear to auscultation, Normal air movement Heart Exam: Positive: Rate Normal, Regular Rhythm, Normal S1, Normal S2, Negative: Murmurs, Rubs Abdomen Exam: Positive: Normal bowel sounds, Soft, Negative: Tenderness, Hepatospenomegaly Extremity Exam: Positive: Normal pulses, Negative: Clubbing, Cyanosis, Edema Skin Exam: Positive: Nl turgor and temperature, Negative: Rash, Breakdown Psych Exam: Positive: Mental status NL, Mood NL, Oriented x 3 Assessment /Plan Problems (1) Chest pain Status: Acute Problem Text: slight elevation in troponin noted at 0.14. EKG: sinus bradycardia. Will perform serial cardiac enzymes and monitor on tele for 24 hours. has known CAD> Echo ordered. (2) Acute pancreatitis Status: Acute Problem Specific Plan: Monitor Clinically Problem Text: 03/27/17: improving symptoms. Advance diet. Probable DC in am. 03/26: Lipase trending down. Now with elevated bilirubin. Will eval US abdomen. Attempted clears last night, unsuccessful due to nausea. Will resume IVF continue NPO and IVF. Repeat labs this am. (3) Rhinovirus Status: Acute Response to Treatment: Improving (4) Asthma Status: Acute Problem Text: wean down to prednisone. Albuterol prn with relief. Albuterol q 4hrs scheduled and q 2hrs prn. Solumedrol 125 mg IV x 1 then 80mg IV q 8 hrs. (5) Fecal retention Problem Text: 03/27/17: + faltus, advance diet. Stool regimen ordered. 03/26: multiple Bms yesterday. monitor. Noted on CT scan. Will give Miralax today. KUB (6) CAD (coronary artery disease) Problem Text: echo 2017: EF 60% On routine home medications. Monitor for fluid volume overload (7) HTN (hypertension) Status: Chronic Response to Treatment: Stable Problem Specific Plan: Monitor Clinically Plan/VTE VTE Prophylaxis Ordered?: Yes (Plavix) VS, I&O, 24H, Fishbone Vital Signs/I&O Vital Signs Date Time Temp Pulse Resp B/P (MAP) Pulse Ox O2 Delivery O2 Flow Rate FiO2 03/29/17 06:00 97.7 55 20 124/79 (94) 94 03/28/17 21:20 Room Air Laboratory Data 24H LABS Laboratory Tests 2 03/28/17 14:51: Total Creatine Kinase 110#, Creatine Kinase MB 2.0, Creatine Kinase MB Relative Index 1.81, Troponin I 0.15H 03/28/17 22:38: Total Creatine Kinase 83, Creatine Kinase MB 1.3, Creatine Kinase MB Relative Index 1.56, Troponin I 0.08# 03/29/17 06:56: Total Creatine Kinase 77, Creatine Kinase MB 1.0, Creatine Kinase MB Relative Index 1.29, Troponin I 0.07, Immature Granulocyte % (Auto) 1.1H, White Blood Count 18.5H, Red Blood Count 4.03L, Hemoglobin 13.0L, Hematocrit 38.4L, Mean Corpuscular Volume 95.3, Mean Corpuscular Hemoglobin 32.3, Mean Corpuscular Hemoglobin Concent 33.9, Red Cell Distribution Width 12.2, Platelet Count 210, Neutrophils (%) (Auto) 88.6H, Lymphocytes (%) (Auto) 5.5L, Monocytes (%) (Auto) 4.7, Eosinophils (%) (Auto) 0.0, Basophils (%) (Auto) 0.1, Neutrophils # (Auto) 16.4H, Lymphocytes # (Auto) 1.0L, Monocytes # (Auto) 0.9H, Eosinophils # (Auto) 0.0, Basophils # (Auto) 0.0, Immature Granulocyte # (Auto) 0.2H, Nucleated Red Blood Cells % (auto) 0.0, Anion Gap 4L, Glomerular Filtration Rate > 60.0, Blood Urea Nitrogen 21H, Creatinine 1.05, Sodium Level 140, Potassium Level 4.9 , Chloride Level 109H, Carbon Dioxide Level 27, Calcium Level 8.2L, Aspartate Amino Transf (AST/SGOT) 12, Alanine Aminotransferase (ALT/SGPT) 26, Alkaline Phosphatase 47, Total Bilirubin 0.5, Total Protein 6.2L, Albumin 2.7L, Albumin/ Globulin Ratio 0.77L CBC/BMP Laboratory Tests 03/29/17 06:56 Red Blood Count 4.03 L, Mean Corpuscular Volume 95.3, Mean Corpuscular Hemoglobin 32.3, Mean Corpuscular Hemoglobin Concent 33.9, Red Cell Distribution Width 12.2, Neutrophils (%) (Auto) 88.6 H, Lymphocytes (%) (Auto) 5.5 L, Monocytes (%) (Auto) 4.7, Eosinophils (%) (Auto) 0.0, Basophils (%) (Auto ) 0.1, Neutrophils # (Auto) 16.4 H, Lymphocytes # (Auto) 1.0 L, Monocytes # ( Auto) 0.9 H, Eosinophils # (Auto) 0.0, Basophils # (Auto) 0.0, Calcium Level 8.2 L, Aspartate Amino Transf (AST/SGOT) 12, Alanine Aminotransferase (ALT/SGPT ) 26, Total Creatine Kinase 77, Alkaline Phosphatase 47, Total Bilirubin 0.5, Total Protein 6.2 L, Albumin 2.7 L Microbiology Microbiology 03/28/17 Blood Culture, Received Pending 03/28/17 Blood Culture, Received Pending 03/25/17 Blood Culture - Preliminary, Resulted No Growth after 72 hours. All specime... 03/25/17 Blood Culture - Preliminary, Resulted No Growth after 72 hours. All specime... 03/25/17 Gram Stain - Final, Complete 03/25/17 Sputum Culture - Final, Complete Haemophilus Influenzae 03/25/17 Respiratory Virus Panel (PCR) (SANKET) - Final, Complete Human Rhinovirus/Enterovirus Regla SuazoP Mar 29, 2017 08:35
[2017-03-29] MEDS: AUGMENTIN 875 MG TAB PO SCH (08:38)
[2017-03-29] MEDS: RANOLAZINE 500 MG ER TAB PO SCH (08:38)
[2017-03-29] MEDS: POTASSIUM CHLORIDE 10 MEQ SR TABLET PO SCH (08:38)
[2017-03-29] MEDS: predniSONE 20 MG TAB PO SCH (08:38)
[2017-03-29] MEDS: CLOPIDOGREL 75 MG TAB PO SCH (08:38)
[2017-03-29] MEDS: TORSEMIDE 5MG TABLET PO SCH (08:39)
[2017-03-29] MEDS ORDERED: AMOX875T2 PO (08:57)
[2017-03-29 09:04] VITALS: BP 138/82
--- NOTE | 2017-03-29 09:24 | ECHO ---
DATE OF STUDY: 03/28/2017 REFERRING PHYSICIAN: ISIDRO Adan INDICATION: Chest pain, unspecified. HEIGHT: 65 inches WEIGHT: 193 pounds 2-D MEASUREMENTS: Aortic root: 3.1 cm Proximal ascending aorta: 3.0 cm Left atrium: 4.0 cm Ventricular septum: 1.19 cm Posterior wall: 1.23 cm Left ventricle diastole: 4.7 cm Left ventricle systole: 2.8 cm Inferior vena cava: 1.7 cm DOPPLER MEASUREMENTS: Aortic valve velocity: 208 cm/s LVOT velocity: 158 cm/s LVOT VTI: 34.5 cm Mitral E velocity: 107 cm/s Mitral A velocity: 126 cm/s Mitral deceleration time: 296 ms Mild tricuspid regurgitation Estimated right ventricle systolic pressure: 30 mmHg assuming a right atrial pressure of 5 mmHg Pulmonary artery systolic pressure: 24 mmHg by pulmonary acceleration time method MITRAL ANNULAR TISSUE DOPPLER: E-prime lateral: 7.4 cm/s E-prime septal: 6.1 cm/s DESCRIPTION: Rhythm was sinus. No pericardial effusion. Image quality was adequate. This is a 2-D, M-mode, color flow Doppler and pulse wave Doppler examination that included mitral annular tissue Doppler. CONCLUSIONS: 1. Normal left ventricle internal dimensions. Borderline concentric left ventricular hypertrophy . No regional wall motion abnormalities of the left ventricle. Normal LV systolic function. Left ventricular ejection fraction (LVEF) 65-70% by visual estimate. 2. Grade 1 LV diastolic dysfunction (impaired relaxation filling pattern). 3. Mild-moderate aortic valve sclerosis of a 3-cusp aortic valve. No aortic stenosis or aortic regurgitation. 4. Otherwise, normal echocardiogram Doppler findings.
[2017-03-29] MEDS: ALBUTEROL 90 MCG/ACT 8GM HFA INHALER INH PRN ×2 (11:05→15:08)
[2017-03-29] MEDS: ONDANSETRON 4MG/2ML VIAL (J2405) IV PRN (13:28)
[2017-03-29 14:00] VITALS: BP 131/74
--- NOTE | 2017-03-29 18:25 | ECGEPIP ---
Stationary ECG Study [facility] Test Date: 2017-03-29 Pat Name: MAIKOL SYLVESTER Department: Room: [place] [address] Gender: M Adult Basic Studies Teacher: IZZY : 1950 Requested By: Regla FELIX Order Number: [id number] Reading MD: Aranza Gomes Measurements Intervals [place] Rate: 43 P: 52 WI: 168 QRS: 49 QRSD: 93 T: 55 QT: 487 QTc: 416 Interpretive Statements SINUS BRADYCARDIA SINCE 03/28/17 THERE HAS BEEN FURTHER DECREASE IN HR Electronically Signed On 03-29-2017 18:25:08 EST by Aranza Gomes
--- NOTE | 2017-03-29 18:28 | ECGEPIP ---
Stationary ECG Study [facility] Test Date: 2017-03-29 Pat Name: MAIKOL SYLVESTER Department: Room: [place] [address] Gender: M Home Care Associate: IZZY : 1950 Requested By: Regla FELIX Order Number: [id number] Reading MD: Aranza Gomes Measurements Intervals [place] Rate: 51 P: 40 MS: 168 QRS: 41 QRSD: 93 T: 57 QT: 465 QTc: 429 Interpretive Statements SINUS BRADYCARDIA SIMILAR 7:55 SAME DAY Electronically Signed On 03-29-2017 18:28:17 EST by Aranza Gomes
--- NOTE | 2017-03-30 03:45 | DSES ---
DATE OF ADMISSION: 03/25/2017 DATE OF TRANSFER/DISCHARGE: 03/29/2017 ATTENDING PHYSICIAN: Dr. Leora Dunham. PRIMARY CARE PROVIDER: Dr. Bipin White. FRAUD INVESTIGATOR: Dr. Teo Mason. This is a 67-year-old male who presented to [facility] Emergency Room due to some significant left upper quadrant pain after eating. Workup in the emergency room proved positive for pancreatitis with an elevated lipase of 5980. Cardiac enzymes at that time were negative. Electrolytes were stable and complete blood count (CBC) was within normal limits other than an elevated white count of 12,000. HOSPITAL COURSE: The patient was subsequently admitted, intravenous (IV) fluid resuscitated, kept nothing by mouth until his pancreatitis symptoms improved. He was able to tolerate oral food and fluids within a 72 hour time frame. Imaging for pancreatitis includes CT abdomen and pelvis, as well as abdominal ultrasound. CT abdomen and pelvis proved peripancreatic fat stranding with mild pancreatitis and mild enteritis of the small bowels. Abdominal ultrasound proved negative for acute disease. Patient was given significant doses of Solu-Medrol secondary to history of asthma along with microbiology positive for both Haemophilus influenza and human rhinovirus and enterovirus. Patient was weaned down on his steroids to prednisone 40 mg by mouth daily within the last 24 hours with improvement of his breathing symptoms. On 03/28, in the information technology architect hours, patient was awakened with crushing chest pain rated at a 9/10. He did receive nitroglycerin. No further testing was completed at that time. On my evaluation the following morning, a troponin level was added to his morning labs, which proved elevated at 0.14. Serial troponins were ordered after that including serial electrocardiograms and an echocardiogram. Troponins subsequently proved positive with 0.15 and then have trended down to 0.08 and 0.07 at 0700 this morning. Patient was placed on telemetry for further monitoring. His cafeteria server was made aware of his condition on the evening of 03/28 informally without a requested consult. On 03/29, in the morning, I was contacted by patient's nursing staff that he had significant bradycardia in the 30s on telemetry while awake and sitting up. At that time, patient did not have any significant dizziness, shortness of breath, lethargy or fatigue. The patient has declined chest pain since this finding. His cafeteria server was consulted secondary to significant bradycardia along with a significant coronary artery disease history. Patient's cafeteria server, Dr. Teo Mason, recommended patient be transferred to [facility] for cardiac catheterization. Dr. Mason did decline to evaluate patient prior to his transition to [facility]. Most recent labs show white blood cell count of 18,000 which is trending down from 22,000 on 03/28. Hemoglobin and hematocrit are stable at 13 and 38. Platelet count is 210. Chemistry shows a normal sodium of 140, potassium 4.9, BUN 21, creatinine is stable at 1.05. Fasting glucose mildly elevated at 122. Patient is a nondiabetic. This may be related to his steroid use. Blood pressure is stable at 124/79, heart rate has returned into the 50-70 range, respiratory rate is in the 18-20 range, patient's oxygen saturation is 94% on room air. HEENT: Neck is supple without lymphadenopathy or jugular venous distention (JVD). CARDIOVASCULAR: Heart rate, rhythm are regular. PULMONARY: Lungs are clear to auscultation throughout. ABDOMEN: Soft and nontender with positive bowel sounds times all four quadrants. EXTREMITIES: Bilateral lower extremities are without any edema. ASSESSMENT/DISCHARGE DIAGNOSES: 1. This is a 67-year-old male with significant atherosclerotic heart disease with presence of chest pain and bradycardia along with abnormal cardiac enzymes. 2. Haemophilus influenza. 3. Positive culture for rhinovirus and enterovirus. 4. Pancreatitis, which has resolved. SECONDARY DIAGNOSES: Include: 1. Moderate persistent asthma. 2. BPH. 3. Hyperlipidemia. PLAN: Patient will be transferred to [facility]. His condition was discussed with Dr. Chowdhury and she is agreeable to accepting patient in transfer for evaluation and probable cardiac catheterization. Please see history and physical for further information regarding patient's chronic medical conditions. Patient is transferred in stable condition. Patient is agreeable to transfer and is willing to accept the risk of transfer at this time.
== END 2017-03-29 15:12 | disposition short-term general hospital (02) | DRG 282 ==
LOC: M ED 23:34 → M ED INP 03-25 02:59 → M MSPAV 03-25 05:30
PROVIDERS: ADMIT General Practice; ATTEND Family Medicine
DX: K85.90 Acute pancreatitis without necrosis or infection, unspecified (principal); J45.41 Moderate persistent asthma with (acute) exacerbation; I10 Essential (primary) hypertension; Z66 Do not resuscitate; B34.8 Other viral infections of unspecified site; R00.1 Bradycardia, unspecified; J10.1 Influenza due to other identified influenza virus with other respiratory manifestations; K59.00 Constipation, unspecified; E78.5 Hyperlipidemia, unspecified; I25.10 Atherosclerotic heart disease of native coronary artery without angina pectoris; E78.00 Pure hypercholesterolemia, unspecified; Z79.02 Long term (current) use of antithrombotics/antiplatelets; Z79.899 Other long term (current) drug therapy; I25.2 Old myocardial infarction; Z95.5 Presence of coronary angioplasty implant and graft

== ENCOUNTER 2017-04-26 08:09 | Outpatient (RCR) | payer BC, MEDICARE, OTHER | END 2017-05-19 | LOC: M CR 08:09 | DX: Z95.5 Presence of coronary angioplasty implant and graft (principal); I25.10 Atherosclerotic heart disease of native coronary artery without angina pectoris | CPT/HCPCS: 93798 ==

== ENCOUNTER 2017-05-21 09:26 | Outpatient (RCR) | payer BC, MEDICARE, OTHER | END 2017-06-19 | LOC: M CR 09:26 | DX: Z51.89 Encounter for other specified aftercare (principal); Z95.5 Presence of coronary angioplasty implant and graft; I25.10 Atherosclerotic heart disease of native coronary artery without angina pectoris ==

== ENCOUNTER → 2017-10-22 | Outpatient (CLI) | payer BC, OTHER ==
[2017-10-22 13:14] LABS: HEMATOCRIT 45.8 % (42.0-52.0); HEMOGLOBIN 15.3 g/dl (13.5-17.5); MEAN CORPUSCULAR HEMOGLOBIN 30.8 pg (27.0-33.0); MEAN CORPUSCULAR HGB CONC 33.4 g/dl (32.0-36.5); MEAN CORPUSCULAR VOLUME 92.2 fl (80.0-96.0); PLATELET COUNT, AUTOMATED 182 10^3/uL (150-450); RED BLOOD COUNT 4.97 10^6/uL (4.30-6.10); RED CELL DISTRIBUTION WIDTH 13.1 % (11.5-14.5); WHITE BLOOD COUNT 9.2 10^3/uL (4.0-10.0)
[2017-10-22 13:34] LABS: ALBUMIN 3.9 GM/DL (3.2-5.2); ALBUMIN/GLOBULIN RATIO 1.26 (1.00-1.93); ALKALINE PHOSPHATASE 63 U/L (45-117); ALT/SGPT 22 U/L (12-78); ANION GAP 8 MEQ/L (8-16); AST/SGOT 16 U/L (7-37); BILIRUBIN,TOTAL 0.8 MG/DL (0.2-1.0); BLOOD UREA NITROGEN 14 MG/DL (7-18); CARBON DIOXIDE LEVEL 26 MEQ/L (21-32); CHLORIDE LEVEL 107 MEQ/L (98-107); CHOLESTEROL LEVEL 174 MG/DL (<200); CHOLESTEROL RISK RATIO 3.954 (<5); CREATININE FOR GFR 0.94 MG/DL (0.70-1.30); GLOMERULAR FILTRATION RATE > 60.0 (>49); GLUCOSE, FASTING 112 MG/DL (70-100); HDL CHOLESTEROL 44 MG/DL (>40); LDL CHOLESTEROL 115.8 MG/DL (<100); NON-HDL-C 130 MG/DL; POTASSIUM SERUM 4.7 MEQ/L (3.5-5.1); PSA SCREENING 1.09 NG/ML (< 4.0); SODIUM LEVEL 141 MEQ/L (136-145); TRIGLYCERIDES LEVEL 71 MG/DL (<150)
== END ==
LOC: M SMT 07:58
DX: I25.10 Atherosclerotic heart disease of native coronary artery without angina pectoris (principal); E78.2 Mixed hyperlipidemia; Z12.5 Encounter for screening for malignant neoplasm of prostate
CPT/HCPCS: 80053

== ENCOUNTER → 2018-01-15 | Outpatient (REF) | payer BC, MEDICARE, OTHER ==
[2018-01-15 15:56] LABS: BASO % 0.5 % (0.0-1.0); EOS # 0.2 10^3/uL (0.0-0.50); EOS % 3.7 % (0.0-3.0); HEMATOCRIT 44.2 % (42.0-52.0); HEMOGLOBIN 14.7 g/dl (13.5-17.5); IMMATURE GRANULOCYTE % 0.2 % (0-3.0); LYMPH # 2.3 10^3/uL (1.5-4.5); MEAN CORPUSCULAR HEMOGLOBIN 30.9 pg (27.0-33.0); MEAN CORPUSCULAR HGB CONC 33.3 g/dl (32.0-36.5); MEAN CORPUSCULAR VOLUME 92.9 fl (80.0-96.0); MONO % 15.5 % (0.0-5.0); NEUTROPHILS # 2.7 10^3/uL (1.8-7.7); NEUTROPHILS % 43.1 % (36.0-66.0); PLATELET COUNT, AUTOMATED 187 10^3/uL (150-450); RED BLOOD COUNT 4.76 10^6/uL (4.30-6.10); RED CELL DISTRIBUTION WIDTH 12.3 % (11.5-14.5); WHITE BLOOD COUNT 6.2 10^3/uL (4.0-10.0)
[2018-01-15 16:46] LABS: ALBUMIN 3.4 GM/DL (3.2-5.2); ALBUMIN/GLOBULIN RATIO 1.13 (1.00-1.93); ALKALINE PHOSPHATASE 56 U/L (45-117); ALT/SGPT 17 U/L (12-78); AMYLASE 37 U/L (25-115); ANION GAP 7 MEQ/L (8-16); AST/SGOT 12 U/L (7-37); BILIRUBIN,TOTAL 0.6 MG/DL (0.2-1.0); BLOOD UREA NITROGEN 12 MG/DL (7-18); CALCIUM LEVEL 8.6 MG/DL (8.8-10.2); CARBON DIOXIDE LEVEL 28 MEQ/L (21-32); CHLORIDE LEVEL 105 MEQ/L (98-107); CREATININE FOR GFR 0.97 MG/DL (0.70-1.30); GLOMERULAR FILTRATION RATE > 60.0 (>49); GLUCOSE, FASTING 73 MG/DL (70-100); LIPASE 110 U/L (73-393); POTASSIUM SERUM 4.7 MEQ/L (3.5-5.1); SODIUM LEVEL 140 MEQ/L (136-145); TOTAL PROTEIN 6.4 GM/DL (6.4-8.2)
== END ==
LOC: M SFHCADAM 14:39
DX: R10.11 Right upper quadrant pain (principal)
CPT/HCPCS: 82150

== ENCOUNTER → 2018-02-28 | Outpatient (CLI) | payer BC, OTHER | LOC: M SMT 10:31 | DX: J45.40 Moderate persistent asthma, uncomplicated (principal) | CPT/HCPCS: 71046 ==

== ENCOUNTER → 2018-03-13 | Outpatient (CLI) | payer BC, MEDICARE, OTHER | LOC: M SLEEP 19:28 | DX: G47.30 Sleep apnea, unspecified (principal) | CPT/HCPCS: 95810 ==

== ENCOUNTER → 2018-04-01 | Outpatient (REF) | payer BC, MEDICARE, OTHER ==
[2018-04-01 16:42] LABS: ANION GAP 5 MEQ/L (8-16); BLOOD UREA NITROGEN 14 MG/DL (7-18); CALCIUM LEVEL 8.4 MG/DL (8.8-10.2); CARBON DIOXIDE LEVEL 30 MEQ/L (21-32); CHLORIDE LEVEL 105 MEQ/L (98-107); CREATININE FOR GFR 0.97 MG/DL (0.70-1.30); GLOMERULAR FILTRATION RATE > 60.0 (>49); GLUCOSE, FASTING 87 MG/DL (70-100); POTASSIUM SERUM 4.2 MEQ/L (3.5-5.1); SODIUM LEVEL 140 MEQ/L (136-145)
[2018-04-01 16:43] LABS: HEMATOCRIT 42.8 % (42.0-52.0); HEMOGLOBIN 14.5 g/dl (13.5-17.5); MEAN CORPUSCULAR HGB CONC 33.9 g/dl (32.0-36.5); MEAN CORPUSCULAR VOLUME 91.6 fl (80.0-96.0); PLATELET COUNT, AUTOMATED 189 10^3/uL (150-450); RED BLOOD COUNT 4.67 10^6/uL (4.30-6.10); RED CELL DISTRIBUTION WIDTH 12.5 % (11.5-14.5); WHITE BLOOD COUNT 6.6 10^3/uL (4.0-10.0)
== END ==
LOC: M LABDRAW1 15:49
DX: I25.118 Atherosclerotic heart disease of native coronary artery with other forms of angina pectoris (principal)

== ENCOUNTER → 2018-09-26 | Outpatient (CLI) | payer BC, MEDICARE, OTHER ==
[2018-09-26 13:51] LABS: HEMOGLOBIN 15.4 g/dl (13.5-17.5); MEAN CORPUSCULAR HEMOGLOBIN 30.6 pg (27.0-33.0); MEAN CORPUSCULAR HGB CONC 32.8 g/dl (32.0-36.5); MEAN CORPUSCULAR VOLUME 93.3 fl (80.0-96.0); PLATELET COUNT, AUTOMATED 208 10^3/uL (150-450); RED BLOOD COUNT 5.04 10^6/uL (4.30-6.10); WHITE BLOOD COUNT 7.9 10^3/uL (4.0-10.0)
[2018-09-26 14:13] LABS: ALBUMIN 3.7 GM/DL (3.2-5.2); ALT/SGPT 17 U/L (12-78); BILIRUBIN,TOTAL 0.8 MG/DL (0.2-1.0); BLOOD UREA NITROGEN 12 MG/DL (7-18); CARBON DIOXIDE LEVEL 30 MEQ/L (21-32); CHLORIDE LEVEL 104 MEQ/L (98-107); CHOLESTEROL LEVEL 153 MG/DL (<200); CHOLESTEROL RISK RATIO 4.371 (<5); GLOMERULAR FILTRATION RATE > 60.0 (>49); GLUCOSE, FASTING 108 MG/DL (70-100); HDL CHOLESTEROL 35 MG/DL (>40); LDL CHOLESTEROL 91 MG/DL (<100); NON-HDL-C 118 MG/DL; POTASSIUM SERUM 4.8 MEQ/L (3.5-5.1); SODIUM LEVEL 140 MEQ/L (136-145); TOTAL PROTEIN 6.9 GM/DL (6.4-8.2); TRIGLYCERIDES LEVEL 135 MG/DL (<150)
[2018-09-26 14:18] LABS: HEMOGLOBIN A1c 6.7 %
== END ==
LOC: M SMT 08:43
PROVIDERS: ATTEND Family Medicine
DX: I25.10 Atherosclerotic heart disease of native coronary artery without angina pectoris (principal); G47.33 Obstructive sleep apnea (adult) (pediatric); E78.2 Mixed hyperlipidemia; Z12.5 Encounter for screening for malignant neoplasm of prostate
CPT/HCPCS: 80053; 80061; 83036; 85027; G0103

== ENCOUNTER → 2018-09-26 | Outpatient (CLI) | payer BC, MEDICARE, OTHER ==
[2018-09-26 14:08] LABS: AMYLASE 52 U/L (25-115); LIPASE 139 U/L (73-393)
== END ==
LOC: M SMT 08:40
PROVIDERS: ATTEND Family Medicine
DX: R10.12 Left upper quadrant pain (principal)

== ENCOUNTER → 2018-10-16 | Outpatient (CLI) | payer BC, MEDICARE, OTHER ==
--- NOTE | 2018-10-16 16:56 | REP ---
Clinical: Left flank pain. Technique: Axial noncontrast images from the lung bases to the pubic symphysis with coronal and sagittal re-formations. Comparison: 03/25/2017. Findings: Stranding within the left anterior pararenal retroperitoneal space along the inferior margin of the pancreas suggests acute pancreatitis and correlation is recommended. Somewhat atrophic appearance to the distal body and tail of the pancreas with mild ductal dilatation most likely represent sequelae of prior pancreatitis. No ascites or drainable collection/abscess. No pseudocyst. Differential diagnosis may include acute pyelonephritis. The bilateral kidneys are otherwise without hydronephrosis or nephroureterolithiasis. Liver, spleen, gallbladder, bilateral adrenal glands are essentially normal for noncontrast evaluation. The enteric system is without obstruction or acute inflammatory process. Mild fecal stasis cannot be excluded. Sigmoid diverticula noted without acute diverticulitis. Pelvis demonstrates partially collapsed normal bladder and age-appropriate prostate/seminal vesicles. Atherosclerotic changes to the aorta and vasculature noted without aneurysm. No ascites. No free air. No significant adenopathy. Skeletal structures demonstrate age-related degenerative changes. Lung bases suggest emphysematous disease. Impression: 1. Findings likely representing acute pancreatitis and correlation is recommended. Differential diagnosis less likely includes acute left-sided pyelonephritis. 2. Sigmoid diverticula without acute diverticulitis. Electronically Signed by Dwayne Dolan MD 10/16/2018 04:48 P
== END ==
LOC: M RAD 16:24
PROVIDERS: ATTEND Family Medicine
DX: R10.32 Left lower quadrant pain (principal); K57.30 Diverticulosis of large intestine without perforation or abscess without bleeding; I70.0 Atherosclerosis of aorta

== ENCOUNTER → 2018-10-17 | Outpatient (CLI) | payer BC, MEDICARE, OTHER ==
[2018-10-17 10:01] LABS: BASO # 0.1 10^3/uL (0.0-0.2); BASO % 0.5 % (0.0-1.0); EOS # 0.2 10^3/uL (0.0-0.50); EOS % 1.8 % (0.0-3.0); HEMATOCRIT 45.9 % (42.0-52.0); HEMOGLOBIN 15.3 g/dl (13.5-17.5); LYMPH # 1.7 10^3/uL (1.5-4.5); LYMPH % 16.4 % (24.0-44.0); MEAN CORPUSCULAR HEMOGLOBIN 30.2 pg (27.0-33.0); MEAN CORPUSCULAR HGB CONC 33.3 g/dl (32.0-36.5); MEAN CORPUSCULAR VOLUME 90.5 fl (80.0-96.0); MONO # 1.2 10^3/uL (0.0-0.8); MONO % 11.5 % (0.0-5.0); NEUTROPHILS # 7.3 10^3/uL (1.8-7.7); NEUTROPHILS % 69.4 % (36.0-66.0); PLATELET COUNT, AUTOMATED 222 10^3/uL (150-450); RED BLOOD COUNT 5.07 10^6/uL (4.30-6.10); WHITE BLOOD COUNT 10.5 10^3/uL (4.0-10.0)
[2018-10-17 10:36] LABS: ALBUMIN 3.7 GM/DL (3.2-5.2); ALT/SGPT 18 U/L (12-78); AMYLASE 38 U/L (25-115); BILIRUBIN,TOTAL 1.5 MG/DL (0.2-1.0); BLOOD UREA NITROGEN 13 MG/DL (7-18); CARBON DIOXIDE LEVEL 29 MEQ/L (21-32); CHLORIDE LEVEL 103 MEQ/L (98-107); CREATININE FOR GFR 1.06 MG/DL (0.70-1.30); GLOMERULAR FILTRATION RATE > 60.0 (>49); GLUCOSE, FASTING 102 MG/DL (70-100); LIPASE 133 U/L (73-393); POTASSIUM SERUM 4.5 MEQ/L (3.5-5.1); SODIUM LEVEL 140 MEQ/L (136-145); TOTAL PROTEIN 7.2 GM/DL (6.4-8.2)
[2018-10-17 16:16] LABS: BILIRUBIN,DIRECT 0.3 MG/DL (0.0-0.2)
== END ==
LOC: M LAB 09:29
PROVIDERS: ATTEND Family Medicine
DX: R10.9 Unspecified abdominal pain (principal); R31.9 Hematuria, unspecified

== ENCOUNTER → 2018-11-17 | Outpatient (CLI) | payer BC, MEDICARE, OTHER ==
[~2018-11-17] MED LIST changes: +RANO500T7 PO; -RANO5TAB PO
--- NOTE | 2018-11-17 07:30 | REP ---
Clinical: Upper abdominal pain. Technique: Real time godinez scale ultrasound examination using curved array transducer. Findings: Liver and visualized pancreas are normal in contour, size, echogenicity without focal hepatic or pancreatic lesion identified. The gallbladder is normal and without gallstones, wall thickening, or pericholecystic fluid. No biliary ductal dilatation is appreciated and the common bile duct measures 4.2 mm diameter. Right kidney is normal in reniform shape without hydronephrosis and measures 10.0 x 6.3 x 5.2 cm. Visualized portions of the abdominal aorta appear normal. No ascites. Impression: Normal limited abdominal ultrasound. Electronically Signed by Dwayne Dolan MD 11/17/2018 07:21 A
== END ==
LOC: M RAD 06:35
PROVIDERS: ATTEND Internal Medicine Gastroenterology
DX: R10.10 Upper abdominal pain, unspecified (principal); R11.0 Nausea

== ENCOUNTER 2018-12-08 09:40 | Day surgery (SDC) | payer BC, MEDICARE, OTHER ==
[~2018-12-08] VITALS: Ht 165.1 cm; Wt 80.0 kg
[~2018-12-08 09:40] MED LIST changes: +CARA1TAB6 PO; +DULE200A INH; +LIDOCAINE 2% INJ 100 MG/5 ML SDV (FOR ANES.) As Ordered ONE; +NITR4TASL SL; +NS 1,000 ML IV ONE; +PANT40TA3 PO; +PROPOFOL 200 MG/20 ML VIAL As Ordered ONE; +ZOFR4TAB16 PO
[2018-12-08] MEDS ORDERED: fentaNYL 100 MCG/2 ML INJECTION (J3010) As Ordered ONE (09:56)
[2018-12-08] MEDS ORDERED: PROPOFOL 200 MG/20 ML VIAL As Ordered ONE (11:38)
[2018-12-08] MEDS ORDERED: PHENYLephrine HCL 500 MCG/5 ML (100MCG/ML) SYRINGE (J2370) As Ordered ONE (11:39)
[2018-12-08] MEDS ORDERED: ePHEDrine SULFATE 25 MG/5 ML(5MG/ML) SYRINGE As Ordered ONE (11:39)
--- NOTE | 2018-12-08 12:03 | ROOR ---
Patient Name: Jose Mckee Procedure Date: 12/08/2018 11:03 AM Date of : 1950 Age: 68 Room: [facility] Gender: Male Note Status: Finalized Procedure: Upper GI endoscopy Indications: Weight loss Providers: Juice Mejia MD Referring MD: Bipin White MD Requesting Provider: Medicines: Monitored Anesthesia Care Complications: No immediate complications. Procedure: Pre-Anesthesia Assessment: - Prior to the procedure, a History and Physical was performed, and patient medications and allergies were reviewed. The patient is competent. The risks and benefits of the procedure and the sedation options and risks were discussed with the patient. All questions were answered and informed consent was obtained. Patient identification and proposed procedure were verified by the physician, the nurse and the anesthesiologist in the procedure room. Mental Status Examination: alert and oriented. Airway Examination: normal oropharyngeal airway and neck mobility. Respiratory Examination: clear to auscultation. CV Examination: normal. Prophylactic Antibiotics: The patient does not require prophylactic antibiotics. Prior Anticoagulants: The patient has taken no previous anticoagulant or antiplatelet agents. ASA Grade Assessment: II - A patient with mild systemic disease. After reviewing the risks and benefits, the patient was deemed in satisfactory condition to undergo the procedure. The anesthesia plan was to use monitored anesthesia care (MAC). Immediately prior to administration of medications, the patient was re-assessed for adequacy to receive sedatives. The heart rate, respiratory rate, oxygen saturations, blood pressure, adequacy of pulmonary ventilation, and response to care were monitored throughout the procedure. The physical status of the patient was re-assessed after the procedure. The Endoscope was introduced through the mouth, and advanced to the second part of duodenum. The upper GI endoscopy was accomplished without difficulty. The patient tolerated the procedure well. Findings: The Z-line was regular and was found 41 cm from the incisors. Diffuse moderate inflammation characterized by erosions, erythema and granularity was found in the gastric body and in the gastric antrum. Biopsies were taken with a cold forceps for Helicobacter pylori testing. Verification of patient identification for the specimen was done by the physician and nurse using the patient's name, date and medical record number. Estimated blood loss was minimal. The duodenal bulb and second portion of the duodenum were normal. Impression: - Z-line regular, 41 cm from the incisors. - Gastritis. Biopsied. - Normal duodenal bulb and second portion of the duodenum. Recommendation: - Patient has a contact number available for emergencies. The signs and symptoms of potential delayed complications were discussed with the patient. Return to normal activities tomorrow. Written discharge instructions were provided to the patient. - Resume previous diet. - Continue present medications. - Await pathology results. - Return to GI clinic in [facility] (address [address], [place] [address]) in 4 -- 6 weeks. Please call GI clinic @ [phone] for apppointment date and time. - Return to primary care physician. Juice Mejia MD Juice Mejia MD 12/08/2018 12:02:58 PM Electronically signed by Juice Mejia MD Number of Addenda: 0 Note Initiated On: 12/08/2018 11:03 AM Estimated Blood Loss: Estimated blood loss was minimal.
--- NOTE | 2018-12-08 12:09 | ROOR ---
Patient Name: Jose Mckee Procedure Date: 12/08/2018 11:03 AM Date of : 1950 Age: 68 Room: [facility] Gender: Male Note Status: Finalized Procedure: Colonoscopy Indications: Weight loss Providers: Juice Mejia MD Referring MD: Bipin White MD Requesting Provider: Medicines: Monitored Anesthesia Care Complications: No immediate complications. Procedure: Pre-Anesthesia Assessment: - Prior to the procedure, a History and Physical was performed, and patient medications and allergies were reviewed. The patient is competent. The risks and benefits of the procedure and the sedation options and risks were discussed with the patient. All questions were answered and informed consent was obtained. Patient identification and proposed procedure were verified by the physician, the nurse and the anesthesiologist in the procedure room. Mental Status Examination: alert and oriented. Airway Examination: normal oropharyngeal airway and neck mobility. Respiratory Examination: clear to auscultation. CV Examination: normal. Prophylactic Antibiotics: The patient does not require prophylactic antibiotics. Prior Anticoagulants: The patient has taken no previous anticoagulant or antiplatelet agents. ASA Grade Assessment: III - A patient with severe systemic disease. After reviewing the risks and benefits, the patient was deemed in satisfactory condition to undergo the procedure. The anesthesia plan was to use monitored anesthesia care (MAC). Immediately prior to administration of medications, the patient was re-assessed for adequacy to receive sedatives. The heart rate, respiratory rate, oxygen saturations, blood pressure, adequacy of pulmonary ventilation, and response to care were monitored throughout the procedure. The physical status of the patient was re-assessed after the procedure. The Colonoscope was introduced through the anus and advanced to the cecum, identified by appendiceal orifice and ileocecal valve. The colonoscopy was performed without difficulty. The patient tolerated the procedure well. The quality of the bowel preparation was fair. The ileocecal valve, appendiceal orifice, and rectum were photographed. Scope insertion time was 4 minutes. Scope withdrawal time was 11 minutes. The total duration of the procedure was 15 minutes. Findings: The perianal and digital rectal examinations were normal. A 3 mm polyp was found in the hepatic flexure. The polyp was sessile. The polyp was removed with a cold biopsy forceps. Resection and retrieval were complete. For hemostasis, one hemostatic clip was successfully placed. There was no bleeding at the end of the procedure. Three hyperplastic polyps were found in the recto-sigmoid colon. The polyps were small in size. Multiple small and large-mouthed diverticula were found in the sigmoid colon. There was no evidence of diverticular bleeding. Non-bleeding external and internal hemorrhoids were found during retroflexion. The hemorrhoids were medium-sized. Impression: - Preparation of the colon was fair. - One 3 mm polyp at the hepatic flexure, removed with a cold biopsy forceps. Resected and retrieved. Clip was placed. - Three small polyps at the recto-sigmoid colon. - Moderate diverticulosis in the sigmoid colon. There was no evidence of diverticular bleeding. - Non-bleeding external and internal hemorrhoids. Recommendation: - Patient has a contact number available for emergencies. The signs and symptoms of potential delayed complications were discussed with the patient. Return to normal activities tomorrow. Written discharge instructions were provided to the patient. - High fiber diet. - Continue present medications. - Await pathology results. - Repeat colonoscopy in 3 years because the bowel preparation was suboptimal and for surveillance based on pathology results. - Return to GI clinic in [facility] (address [address], [address], [place] [address]) in 4 -- 6 weeks. Please call GI clinic @ [phone] for apppointment date and time. - Return to primary care physician. Juice Mejia MD Juice Mejia MD 12/08/2018 12:09:33 PM Electronically signed by Juice Mejia MD Number of Addenda: 0 Note Initiated On: 12/08/2018 11:03 AM Estimated Blood Loss: Estimated blood loss was minimal.
[2018-12-08 12:32] VITALS: BP 124/81
== END 2018-12-08 12:37 | disposition home or self-care (01) ==
LOC: M OPP 09:40
PROVIDERS: ATTEND Internal Medicine Gastroenterology
DX: K64.8 Other hemorrhoids (principal); D12.3 Benign neoplasm of transverse colon; D12.7 Benign neoplasm of rectosigmoid junction; K57.30 Diverticulosis of large intestine without perforation or abscess without bleeding; K29.70 Gastritis, unspecified, without bleeding; R63.4 Abnormal weight loss; Z79.82 Long term (current) use of aspirin; Z79.899 Other long term (current) drug therapy; Z88.5 Allergy status to narcotic agent
CPT/HCPCS: 43239; 45382; 88305; J2370; J3010

== ENCOUNTER → 2018-12-22 | Outpatient (CLI) | payer BC, MEDICARE, OTHER ==
[~2018-12-22] MED LIST changes: -LIDOCAINE 2% INJ 100 MG/5 ML SDV (FOR ANES.) As Ordered ONE; -NS 1,000 ML IV ONE; -PROPOFOL 200 MG/20 ML VIAL As Ordered ONE
[2018-12-22 17:34] LABS: BLOOD UREA NITROGEN 14 MG/DL (7-18); GLOMERULAR FILTRATION RATE > 60.0 (>49)
== END ==
LOC: M SMT 15:09
PROVIDERS: ATTEND Internal Medicine Gastroenterology
DX: R10.10 Upper abdominal pain, unspecified (principal); R11.0 Nausea; R63.4 Abnormal weight loss

== ENCOUNTER → 2018-12-26 | Outpatient (CLI) | payer BC, MEDICARE, OTHER ==
[~2018-12-26] MED LIST changes: +ASPI81TA85 PO; +BISO5TAB14 PO; -BISO5TAB5 PO; +DECA4TAB PO; +DEXA4TA PO; +ISOVUE-370 76% 100ML VIAL (Q9967) As Ordered ONE; +METH5TA PO; +ONDA-83 PO; +ONDA8TAB10 PO; +OXYC1TAB23 PO; +PROC10TA4 PO; +SENN-52 PO
--- NOTE | 2018-12-26 08:49 | REP ---
Clinical: Abdominal pain with abnormal weight loss. Technique: Axial contrast enhanced images from the lung bases to the pubic symphysis using arterial angiographic technique with 100 ml Isovue 370 intravenous contrast material. Multiplanar and MIP re-formations along with 3-D re-formations obtained. Findings: Mild scattered calcified atheromatous plaquing is appreciated along the abdominal aorta and visualized iliac arteries with extension into the visualized bilateral common femoral and proximal superficial femoral arteries. Normal variant includes separate origin of the common hepatic artery just below the level of the celiac axis. Small amounts of calcification identified at the origin of the superior mesenteric artery and bilateral renal arteries without evidence for stenosis. Normal inferior mesenteric artery identified. There is no evidence for aortic aneurysm or dissection and the infrarenal aorta measures 1.9 cm maximal diameter. The bilateral common iliac arteries appear patent and of normal, relatively symmetric caliber. Very subtle peripancreatic inflammatory stranding is appreciated suggesting the possibility of acute pancreatitis without fluid collection, pseudocyst or abscess. Liver, spleen, gallbladder, bilateral adrenal glands and kidneys appear relatively normal. The enteric system is without obstruction or acute inflammatory process. Normal terminal ileum and appendix identified in the right lower quadrant. Sigmoid diverticulosis noted without acute diverticulitis. Pelvis demonstrates normal bladder. Prostate gland is moderately enlarged. No ascites. No free air. No significant adenopathy. Musculoskeletal structures demonstrate degenerative changes without focal aggressive abnormality. Lung bases are clear. Impression: 1. Mild scattered atherosclerotic changes to the aorta and branch vessels as detailed above without evidence for aortic aneurysm/dissection or obvious significant arterial pathology. 2. Findings suggesting acute pancreatitis require correlation. 3. Sigmoid diverticulosis without acute diverticulitis. Electronically Signed by Dwayne Dolan MD 12/26/2018 08:41 A
== END ==
LOC: M RAD 07:37
PROVIDERS: ATTEND Internal Medicine Gastroenterology
DX: K57.90 Diverticulosis of intestine, part unspecified, without perforation or abscess without bleeding (principal); E55.9 Vitamin D deficiency, unspecified
CPT/HCPCS: 74174; Q9967

== ENCOUNTER 2019-01-14 08:43 | Inpatient (IN) | payer BC, MEDICARE, OTHER ==
[~2019-01-14] VITALS: Ht 162.6 cm; Wt 79.5 kg
[~2019-01-14 08:43] MED LIST changes: -ASPI81TA85 PO; -BISO5TAB14 PO; +BISO5TAB5 PO; -DECA4TAB PO; -DEXA4TA PO; -ISOVUE-370 76% 100ML VIAL (Q9967) As Ordered ONE; -METH5TA PO; -ONDA-83 PO; -ONDA8TAB10 PO; -OXYC1TAB23 PO; -PROC10TA4 PO; -SENN-52 PO
[2019-01-14 10:51] LABS: HEMATOCRIT 47.5 % (42.0-52.0); HEMOGLOBIN 15.6 g/dl (13.5-17.5); MEAN CORPUSCULAR HEMOGLOBIN 30.1 pg (27.0-33.0); MEAN CORPUSCULAR HGB CONC 32.8 g/dl (32.0-36.5); MEAN CORPUSCULAR VOLUME 91.7 fl (80.0-96.0); PLATELET COUNT, AUTOMATED 171 10^3/uL (150-450); RED BLOOD COUNT 5.18 10^6/uL (4.30-6.10); WHITE BLOOD COUNT 8.2 10^3/uL (4.0-10.0)
[2019-01-14 11:00] VITALS: BP 123/72
[2019-01-14] MEDS: LR 1,000 ML IV SCH ×2 (11:00→17:27)
[2019-01-14] MEDS ORDERED: ISOS30TAB PO (11:05)
[2019-01-14 11:15] LABS: ALBUMIN 3.7 GM/DL (3.2-5.2); ALT/SGPT 19 U/L (12-78); AMYLASE 40 U/L (25-115); BILIRUBIN,TOTAL 1.1 MG/DL (0.2-1.0); BLOOD UREA NITROGEN 11 MG/DL (7-18); CALCIUM LEVEL 9.2 MG/DL (8.8-10.2); CARBON DIOXIDE LEVEL 32 MEQ/L (21-32); CHLORIDE LEVEL 103 MEQ/L (98-107); CREATININE FOR GFR 1.24 MG/DL (0.70-1.30); GLOMERULAR FILTRATION RATE > 60.0 (>49); GLUCOSE, FASTING 73 MG/DL (70-100); POTASSIUM SERUM 4.5 MEQ/L (3.5-5.1); SODIUM LEVEL 138 MEQ/L (136-145); TOTAL PROTEIN 7.5 GM/DL (6.4-8.2)
[2019-01-14] MEDS ORDERED: ALBUTEROL 90 MCG/ACT 8GM HFA INHALER INH PRN (11:30)
[2019-01-14] MEDS ORDERED: NITROGLYCERIN 0.4 MG SUBL TABLET SL PRN (11:30)
[2019-01-14] MEDS ORDERED: PILL CUTTER 1 EACH XX PRN (11:45)
[2019-01-14] MEDS ORDERED: ACETAMINOPHEN 500 MG TAB PO PRN (12:30)
[2019-01-14] MEDS: ENOXAPARIN 40 MG/0.4 ML SYRINGE (J1650) SC SCH (13:06)
[2019-01-14] MEDS: ONDANSETRON 4MG/2ML VIAL (J2405) IV PRN ×2 (13:06→21:12)
[2019-01-14] MEDS: ISOSORBIDE DIN. (ISORDIL) 30 MG TAB PO SCH ×2 (13:06→21:13)
[2019-01-14] MEDS: HYDROMORPHONE HCL 0.5 MG/ 0.5 ML SYRINGE (J1170 PER 1) IV PRN ×2 (13:07→21:15)
[2019-01-14 16:00] VITALS: BP 113/66
[2019-01-14] MEDS: SUCRALFATE 1 GM TAB PO SCH (18:25)
--- NOTE | 2019-01-14 19:45 | REP ---
CT abdomen and pelvis without IV or oral contrast: History: Pancreatitis. Comparison CT study is from December 26, 2018. March 25, [address] study is also reviewed. There is a CT study from October 16, [address] findings: Preliminary digital associate sales manager radiograph shows an unremarkable bowel gas pattern. Coronary artery vascular calcification and stent material visible. Sternotomy wires are seen. There is discoid atelectasis in the right lower lobe and fibrosis in both bases. No pleural effusion is seen. No adrenal lesion is observed on either side. No focal liver lesion is seen on this noncontrast study. The spleen is homogeneous in texture. No abnormalities noted in the gallbladder. There is no evidence of hydronephrosis. There is a small metallic density along the medial wall of the right colon suggesting colonoscopic marker clip. Normal appendix is seen. Small and large bowel loops are unremarkable except for left colonic diverticulosis without CT evidence of diverticulitis. Urinary bladder, prostate, and seminal vesicles are unremarkable. No abdominal wall defect is seen. Images through the pancreas demonstrate an area of fullness in the body of the pancreas with evidence of dilation of the main pancreatic duct in the tail of the pancreas. These changes are observed on December 26, 2018 CT angiography but appear to be new when compared with the March 2017 prior study. No intrapancreatic or peripancreatic fluid collection is seen. There is minimal peripancreatic edema along the inferior margin of the pancreatic body similar to prior studies. There is one focal pancreatic calcification in the body of the pancreas. There is no evidence of adenopathy. No bony destructive lesion is seen. There are degenerative changes in the lumbar spine. Impression: Fullness in the pancreatic body with mild to moderate dilation of the pancreatic duct in the pancreatic tail. These changes are new compared to March 2017 prior study. Pancreatic neoplasm versus focal pancreatitis with ductal stricture are possibilities. A contrast-enhanced pancreatic protocol CT study with multiphase postcontrast imaging may provide additional information. Alternatively, pancreatic protocol MRI study without and with IV gadolinium contrast could be considered. Electronically Signed by Gurpreet Castillo MD 01/14/2019 07:54 P
[2019-01-14 20:00] VITALS: BP 131/71
[2019-01-14] MEDS ORDERED: PROHANCE 279.3MG/ML 15ML VIAL (A9576) As Ordered ONE (20:10)
[2019-01-14] MEDS: SIMVASTATIN 40 MG TAB PO SCH (21:13)
[2019-01-14] MEDS: ASPIRIN 325 MG TAB PO SCH (21:13)
--- NOTE | 2019-01-14 23:01 | REPVR ---
EXAM: MR Abdomen Without and With Contrast EXAM DATE/TIME: 01/14/2019 9:53 PM CLINICAL HISTORY: 68 years old, male; Bloating and nausea and vomiting and other: Pain; Patient HX: HX pancreatitis severe abd pain nausea vomiting TECHNIQUE: Imaging protocol: MR of the abdomen without and with intravenous contrast. Contrast material: PROHANCE; Contrast volume: 15 ml; Contrast route: 20G ANGIO; COMPARISON: CT ABD PELVIS W/O CONTRAST 01/14/2019 11:54 AM FINDINGS: Liver: Normal-appearing liver. Gallbladder and bile ducts: Normal gallbladder. Pancreas: At the midportion of the body of the pancreas there is a 3.5 CM by 2.5 CM oval mass. After contrast this does not enhance, however, the head of the pancreas enhances. There is delayed enhancement of the tail of the pancreas. In addition there is mild dilatation of the pancreatic duct at the tail of the pancreas which can be followed to this probable mass. In addition there is tapering of the splenic vein and artery at this location suspicious for encasement. This is very suspicious for neoplasm of the body of the pancreas. The patient has had changes of pancreatitis on the previous CT examinations through this area. Spleen: Normal spleen. Adrenals: Normal adrenal glands. Kidneys and ureters: Normal kidneys. Stomach and bowel: Unremarkable. Intraperitoneal space: No fluid collection. Arteries: Normal sized aorta. Bones/joints: DJD Soft tissues: Unremarkable. IMPRESSION: 3.5 CM by 2.5 CM nonenhancing area of the midportion of the pancreas very suspicious for a focal neoplasm. Dilatation of the pancreatic duct beyond this location at the tail of the pancreas. Narrowing of the splenic artery and vein in this location which may be the result of encasement. Previous changes of pancreatitis previous CT examinations dating back to September. Electronically signed by: Mark Roberson On 01/14/2019 23:00:45 PM
[2019-01-15] VITALS: BP 100/60
[2019-01-15] MEDS: LR 1,000 ML IV SCH ×4 (00:13→18:00)
[2019-01-15 04:00] VITALS: BP 132/77
[2019-01-15] MEDS: HYDROMORPHONE HCL 0.5 MG/ 0.5 ML SYRINGE (J1170 PER 1) IV PRN ×4 (04:08→20:10)
[2019-01-15] MEDS: ONDANSETRON 4MG/2ML VIAL (J2405) IV PRN ×4 (04:08→20:09)
[2019-01-15 06:21] LABS: HEMATOCRIT 41.1 % (42.0-52.0); HEMOGLOBIN 13.7 g/dl (13.5-17.5); MEAN CORPUSCULAR HEMOGLOBIN 30.4 pg (27.0-33.0); MEAN CORPUSCULAR HGB CONC 33.3 g/dl (32.0-36.5); MEAN CORPUSCULAR VOLUME 91.1 fl (80.0-96.0); PLATELET COUNT, AUTOMATED 147 10^3/uL (150-450); RED BLOOD COUNT 4.51 10^6/uL (4.30-6.10); WHITE BLOOD COUNT 8.5 10^3/uL (4.0-10.0)
[2019-01-15 06:49] LABS: ALT/SGPT 12 U/L (12-78); BILIRUBIN,TOTAL 0.8 MG/DL (0.2-1.0); BLOOD UREA NITROGEN 9 MG/DL (7-18); CALCIUM LEVEL 8.5 MG/DL (8.8-10.2); CARBON DIOXIDE LEVEL 29 MEQ/L (21-32); CHLORIDE LEVEL 106 MEQ/L (98-107); CREATININE FOR GFR 0.95 MG/DL (0.70-1.30); GLOMERULAR FILTRATION RATE > 60.0 (>49); GLUCOSE, FASTING 111 MG/DL (70-100); POTASSIUM SERUM 4.2 MEQ/L (3.5-5.1); SODIUM LEVEL 139 MEQ/L (136-145); TOTAL PROTEIN 5.5 GM/DL (6.4-8.2)
--- NOTE | 2019-01-15 07:33 | CR.PDOC ---
General Date of Consultation: Jan 15, 2019 Referring Provider: Bipin White MD Attending Physician: KD WILKERSON MD Consultation Primary physician/ hospitalist: Dr. White. Reason for consult: persistent abdominal pain and suspected pancreatitis. ( patient was seen on 01/14/2019 at 4: 30 PM and again on 01/15/2019 at 7:40AM). HPI: 68 year old male patient with CAD (s/p CABG, multiple cardiac stents, last in Mar 2018, follows with Dr. Mason), BA, h/o pancreatitis 1 year ago, (unclear etiology, no gallstones, no alcohol use, ??OLIVIA inhibitors), initially seen in GI clinic in 11/12/2018 for persistent abdominal pain, had work up including EGD and Colonoscopy, US abdomen, CT abdomen with IV contrast- unrevealing except for features of pancreatitis ( reports attached below), is currently admitted directly from PCP clinic for worsening abdominal pain. Patient reports having left upper quadrant, epigastric area pain, chronic with worsening symptoms recently, 8-10/10 intensity, associated with nausea, worsening with food intake, lying back, sometimes radiating to back, loss of appetite, and unintentional weight loss of around 20 pounds over the last 6 months. Patient also reports chronic reflux in past and it improved with PPI but the left upper quadrant pain is not getting better. Pertinent negative GI symptoms: Patient denies diarrhea, No history of hematemesis, melena or hematochezia. Patient reports regular bowel movements. Review of Systems: GI: as stated above CVS: No chest pain, No palpitations, No leg swelling. RS: No Shortness of breath, No Wheezing, no cough PUNCH BOX TENDER: No dizziness, No motor weakness, No sensory problems Hematology: No bruising, No gum bleeding, Musculoskeletal: No joint pain, ambulating well. Skin: No rash : No hematuria, No burning sensation of the urine ENT: No ear discharge/ pain, No dysphagia. Eyes: No photophobia. Jaundice Home medications: reviewed. Antithrombotic agents - ASA 325 and Plavix 75 mg. Medical h/o: As above. Surgical h/o: None on abdomen. Social h/o: Alcohol--none ( very rarely), smoking- denies, IVDA/ drugs- denies . Family h/o of GI cancers - None Prior Endoscopies: EGD and Colonoscopy November 2018(done while on Plavix) -- Gastritis, no H. pylori, no celiac, small Tubular adenoma in Colon . removed. Recommended surveillance Colonoscopy in 3 years Prior GI evaluations: Seen me in GI clinic on 11/12/2018. Exam: Vitals: reviewed General: Alert and oriented x 3, not in distress HEENT: NO pallor, no icterus. Normal oropharynx, NO cervical lymph nodes. Chest: symmetric with bilateral clear air entry, CVS: S1, S2 heard, normal, no murmurs . Abdomen: non-distended, no surgical scars, soft, tenderness in left upper quadrant and epigastric area, ( carnett sign pain slightly better with elevation of legs), patient clearly could not tolerate lying on back, no palpable masses, normal bowel sounds heard. Rectal exam: Patient refused / Deferred at this time in view of scheduled colonoscopy. Extremities: no pedal edema, pulses palpable. PUNCH BOX TENDER: no focal motor or sensory deficits. Moves all extremities Skin: no rash. Labs: reviewed. HCV screening indicated ordered / done OR Not indicated due to age. Imaging: reviewed. CT abdomen without contrast: Fullness in the pancreatic body with mild to moderate dilation of the pancreatic duct in the pancreatic tail. These changes are new compared to March 2017 prior study. Pancreatic neoplasm versus focal pancreatitis with ductal stricture are possibilities Prior Work up: CT abdomen with IV contrast: ( angiography protocol): No obvious arterial pathology. Findings suggestive of pancreatitis. No mass identitifed. 10/16/18 --CT scan abdomen and pelvis without contrast done for flank pain -- stranding within left anterior para-renal retroperitoneal space, along inferior margin of pancreas, suggestive of pancreatitis. ( DDx- left sided pyelonephritis). Sigmoid diverticulosis and mild fecal stasis. 03/12/06 - Colonoscopy -- No colon polyps 01/26/03 - EGD -- no bleeding. 01/15/03 - Path Colon Polyp -- tubular adenoma and lymphoid aggregates. Impression: - Persistent and worsening upper abdominal pain, clinically pancreatic type pain, with prior work up including EGD, Colonoscopy, US abdomen, CT abdomen unrevealing except for persistent changes suggestive of pancreatitis in CT scans. and labs in this admission show normal lipase and amylase, and CT abdomen without contrast- show fullness in pancreas -- Needs further evaluation. DDx-- Chronic pancreatitis of unclear etiology vs rule out pancreatic Neoplasm. Recommendations: - Patient educated about the test results, possible differential diagnoses and All questions answered. - Pain management as per primary team. - Will obtain MRI pancreatic protocol and MRCP as well. - Based on the above imaging will plan for further work up. Plan of care discussed with patient and primary team. Patient verbalized understanding and agreed with the plan. Addendum:( 01/15/2019) MRI pancreatic protocol reviewed: 3.5 CM by 2.5 CM nonenhancing area of the midportion of the pancreas very suspicious for a focal neoplasm. Dilatation of the pancreatic duct beyond this location at the tail of the pancreas. Narrowing of the splenic artery and vein in this location which may be the result of encasement. Previous changes of pancreatitis previous CT examinations dating back to September. -- The above report results are reviewed with patient and all questions answered. -- Will obtain CA19-9 levels. -- Patient will require referral for EUS with or without FNA (due to last Cardiac stenting in Mar 2018, Patient is educated to review with mechanical energy engineer and endoscopist about risks and benefits). Referral sent to [facility] for EUS from clinic. -- Refer to Pancreatobiliary surgeon / Cancer center for further evaluation for therapy. -- Advance diet as tolerated. -- Educated patient about oral hydration. Plan of care discussed with patient and primary team. Patient verbalized understanding and agreed with the plan. Laboratory Data CBC/BMP Laboratory Tests 01/14/19 10:37 Red Blood Count 5.18, Mean Corpuscular Volume 91.7, Mean Corpuscular Hemoglobin 30.1, Mean Corpuscular Hemoglobin Concent 32.8, Red Cell Distribution Width 13.1, Calcium Level 9.2, Aspartate Amino Transf (AST/SGOT) 20, Alanine Aminotransferase (ALT/SGPT) 19, Alkaline Phosphatase 57, Total Bilirubin 1.1 H, Total Protein 7.5, Albumin 3.7 01/15/19 06:07 Red Blood Count 4.51, Mean Corpuscular Volume 91.1, Mean Corpuscular Hemoglobin 30.4, Mean Corpuscular Hemoglobin Concent 33.3, Red Cell Distribution Width 12.8, Calcium Level 8.5 L, Aspartate Amino Transf (AST/SGOT) 10, Alanine Aminotransferase (ALT/SGPT) 12, Alkaline Phosphatase 46, Total Bilirubin 0.8, Total Protein 5.5 #L, Albumin 3.0 L Allergies Coded Allergies: meperidine (Verified Allergy, Intermediate, FLUSHING FEELING, 12/04/18) ezetimibe (Verified Adverse Reaction, Intermediate, MUSCLE ACHES, 01/14/19) simvastatin (Verified Adverse Reaction, Intermediate, N/V, 12/04/18) morphine (Verified Adverse Reaction, Mild, ANXIETY, 12/04/18) Home Medications Scheduled Aspirin (Aspirin) 325 Mg Tab, 325 MG PO QHS, (Reported) Bimatoprost (Lumigan) 50 Drop/2.5 Ml Lily, 1 DROP OU QHS, (Reported) Bisoprolol Fumarate (Bisoprolol Fumarate) 5 Mg Tab, 2.5 MG PO DAILY, (Reported) Clopidogrel Bisulfate (Plavix) 75 Mg Tab, 75 MG PO DAILY, (Reported) Isosorbide Dinitrate (Isosorbide Dinitrate) 30 Mg Tab, 45 MG PO BID, (Reported) TAKES AM/HS Isosorbide Dinitrate (Isosorbide Dinitrate) 30 Mg Tablet, 60 MG PO DAILY, (Reported) TAKES AT NOON Lovastatin (Lovastatin) 40 Mg Tab, 80 MG PO QHS, (Reported) Pantoprazole Sodium (Pantoprazole Sodium) 40 Mg Tablet.dr, 40 MG PO DAILY, (Reported) Potassium Chloride (Potassium Chloride) 20 Meq Tab, 20 MEQ PO DAILY, (Reported) Sucralfate (Carafate) 1 Gm Tablet, 1 GM PO BID, (Reported) Torsemide (Torsemide) 5 Mg Tab, 5 MG PO DAILY, (Reported) Scheduled PRN Albuterol Sulfate (Proair Hfa) 108 Mcg/Act Aer, 2 PUFFS INH Q4H PRN for SHORTNESS OF BREATH, (Reported) Mometasone/Formoterol (Dulera 200 Mcg/5 Mcg Inhaler) 13 Gm Hfa.aer.ad, 2 PUFFS INH BID PRN for ASTHMA, (Reported) Nitroglycerin (Nitrostat) 0.4 Mg Tab.subl, 0.4 MG SL Q5MP PRN for CHEST PAIN, (Reported) KD WILKERSON MD Jan 15, 2019 07:33
[2019-01-15 08:00] VITALS: BP 127/80
[2019-01-15] MEDS: BISOPROLOL FUM 2.5 MG PER 1/2TAB PO SCH (08:23)
[2019-01-15] MEDS: SUCRALFATE 1 GM TAB PO SCH ×2 (08:23→18:00)
[2019-01-15] MEDS: PANTOPRAZOLE 40MG TAB (PROTONIX) PO SCH (08:23)
[2019-01-15] MEDS: POTASSIUM CHLORIDE 10 MEQ SR TABLET PO SCH (08:24)
[2019-01-15] MEDS: CLOPIDOGREL 75 MG TAB PO SCH (08:24)
[2019-01-15] MEDS: ENOXAPARIN 40 MG/0.4 ML SYRINGE (J1650) SC SCH (08:24)
[2019-01-15] MEDS: ISOSORBIDE DIN. (ISORDIL) 30 MG TAB PO SCH ×3 (08:24→20:08)
[2019-01-15] MEDS ORDERED: TORSEMIDE 5MG TABLET PO SCH (09:00)
[2019-01-15 12:00] VITALS: BP 118/58
[2019-01-15 16:00] VITALS: BP 146/78
[2019-01-15 19:59] VITALS: BP 139/84
[2019-01-15] MEDS: ASPIRIN 325 MG TAB PO SCH (20:07)
[2019-01-15] MEDS: SIMVASTATIN 40 MG TAB PO SCH (20:07)
[2019-01-16] MEDS: HYDROMORPHONE HCL 0.5 MG/ 0.5 ML SYRINGE (J1170 PER 1) IV PRN ×3 (00:12→14:11)
[2019-01-16] MEDS: ONDANSETRON 4MG/2ML VIAL (J2405) IV PRN ×3 (00:12→14:11)
[2019-01-16 00:15] VITALS: BP 119/74
[2019-01-16] MEDS: LR 1,000 ML IV SCH ×2 (02:07→06:38)
[2019-01-16 04:00] VITALS: BP 143/73
[2019-01-16] MEDS: SUCRALFATE 1 GM TAB PO SCH (06:38)
[2019-01-16 06:45] LABS: HEMATOCRIT 41.1 % (42.0-52.0); HEMOGLOBIN 13.4 g/dl (13.5-17.5); MEAN CORPUSCULAR HEMOGLOBIN 29.6 pg (27.0-33.0); MEAN CORPUSCULAR HGB CONC 32.6 g/dl (32.0-36.5); MEAN CORPUSCULAR VOLUME 90.7 fl (80.0-96.0); PLATELET COUNT, AUTOMATED 141 10^3/uL (150-450); RED BLOOD COUNT 4.53 10^6/uL (4.30-6.10); WHITE BLOOD COUNT 5.4 10^3/uL (4.0-10.0)
[2019-01-16 07:10] LABS: ALBUMIN 3.1 GM/DL (3.2-5.2); ALT/SGPT 15 U/L (12-78); BILIRUBIN,TOTAL 0.7 MG/DL (0.2-1.0); BLOOD UREA NITROGEN 5 MG/DL (7-18); CALCIUM LEVEL 8.6 MG/DL (8.8-10.2); CARBON DIOXIDE LEVEL 31 MEQ/L (21-32); CHLORIDE LEVEL 108 MEQ/L (98-107); CREATININE FOR GFR 0.89 MG/DL (0.70-1.30); GLOMERULAR FILTRATION RATE > 60.0 (>49); GLUCOSE, FASTING 96 MG/DL (70-100); LIPASE 114 U/L (73-393); POTASSIUM SERUM 4.1 MEQ/L (3.5-5.1); SODIUM LEVEL 142 MEQ/L (136-145); TOTAL PROTEIN 6.4 GM/DL (6.4-8.2)
[2019-01-16 08:00] VITALS: BP 132/79
[2019-01-16 09:28] VITALS: BP 132/79
[2019-01-16] MEDS: POTASSIUM CHLORIDE 10 MEQ SR TABLET PO SCH (09:28)
[2019-01-16] MEDS: BISOPROLOL FUM 2.5 MG PER 1/2TAB PO SCH (09:28)
[2019-01-16] MEDS: ISOSORBIDE DIN. (ISORDIL) 30 MG TAB PO SCH ×2 (09:29→12:00)
[2019-01-16] MEDS: CLOPIDOGREL 75 MG TAB PO SCH (09:29)
[2019-01-16] MEDS: PANTOPRAZOLE 40MG TAB (PROTONIX) PO SCH (09:29)
[2019-01-16] MEDS: ENOXAPARIN 40 MG/0.4 ML SYRINGE (J1650) SC SCH (09:29)
[2019-01-16 10:47] LABS: CA19-9 TUMOR MARKER,CARBOHYDRA 190.5 U/ML (<35.0)
[2019-01-16] MEDS ORDERED: OXYC1TAB23 PO (11:07)
--- NOTE | 2019-01-16 11:18 | DSES ---
DATE OF ADMISSION: 01/14/2019 DATE OF DISCHARGE: PRINCIPAL DIAGNOSIS: Intractable abdominal pain from possible pancreatic cancer. HISTORY: Jose Mckee is a 68-year-old who has been having several months of mid abdominal pain. He has been evaluated by gastroenterology. He had a CT of the abdomen and pelvis in November that showed pancreatitis. He did not have resolution of his pain. He presented to the office on 01/14/2019 and was admitted for further workup. HOSPITAL COURSE: He was admitted to a medical bed. CT of the abdomen and pelvis showed fullness in the body of the pancreas, dilatation of the main pancreatic duct, minimal peripancreatic edema, focal calcifications in the body of the pancreas. No adenopathy. The liver looks unremarkable. MRI showed a 3.5 x 2.5 nonenhancing area in the mid portion of the pancreas, suspicious for focal neoplasm. There was dilatation of the pancreatic duct beyond this location at the tail of the pancreas and narrowing of the splenic artery and vein that suggests encasement. His hospitalization consisted of rehydration and pain control. On the day of discharge, he is resting comfortably and feels stable to go home with oral opiates for pain management. On the day of discharge, his blood pressure is 131/73, pulse 60, respiratory rate 18, 100.2 degrees, 94% oxygen saturation. He looks well, resting comfortably. Examination is stable, mildly tender abdomen, otherwise unremarkable. LABORATORIES: His CA 19-9 is 190, CEA is normal. Liver function tests normal. Sodium 142, potassium 4.1, BUN 5, creatinine 0.9, glucose 96. AST, ALT and bilirubin within normal limits. Albumin 3.7 on admission and 3.1 after hydration. Amylase and lipase normal. White count 5.4, hemoglobin 13.4, platelets 141. DISPOSITION: The patient is discharged home in improved and stable condition. He feels his pain control is adequate. I called [facility] [place] today and spoke to the office of Dr. Jose Hamilton, spoke with Ana Luisa at that office, who will call Mr. Mckee today to set up an evaluation as soon as possible. We will fax a copy of the history and physical (done in our [employer] office record), discharge summary, laboratories and imaging studies to [phone]. I have asked the staff to have all imaging studies placed on discs so Jose can take them with him to [place]. Prognosis depends on results of workup. Appreciate Dr. Hamilton's office facilitating this outpatient evaluation.
[2019-01-16 12:00] VITALS: BP 111/56
== END 2019-01-16 14:35 | disposition home or self-care (01) | DRG 281 ==
LOC: M PED 10:27
PROVIDERS: ADMIT Family Medicine; ATTEND Family Medicine
DX: C25.1 Malignant neoplasm of body of pancreas (principal); E78.5 Hyperlipidemia, unspecified; I25.10 Atherosclerotic heart disease of native coronary artery without angina pectoris; G47.33 Obstructive sleep apnea (adult) (pediatric); J45.40 Moderate persistent asthma, uncomplicated; Z88.5 Allergy status to narcotic agent; Z88.8 Allergy status to other drugs, medicaments and biological substances; N40.0 Benign prostatic hyperplasia without lower urinary tract symptoms; Z79.02 Long term (current) use of antithrombotics/antiplatelets; Z79.82 Long term (current) use of aspirin; Z79.899 Other long term (current) drug therapy; Z95.5 Presence of coronary angioplasty implant and graft

== ENCOUNTER → 2019-02-20 | Outpatient (CLI) | payer MEDICARE, OTHER ==
[~2019-02-20] MED LIST changes: +ASPI81TA85 PO; -BISO5TAB5 PO; +BISO5TAB9 PO; +DECA4TAB PO; +DEXA4TA PO; +METH5TA PO; +ONDA4TAB5 PO; +ONDA8TAB7 PO; +OXYC1TAB23 PO; +PROC10TA4 PO; +SENN-52 PO
--- NOTE | 2019-02-22 08:16 | ECHO ---
DATE OF PROCEDURE: Date of : 1950 Age: 69 Gender: Male Height: 65 inches Weight: 164 pounds Body surface area: 1.82 meters squared Outpatient. REFERRING PHYSICIAN: Jenni Arango, Nurse Practitioner INDICATION: Pancreatic cancer/baseline prior to chemotherapy. MEASUREMENTS: 2D Measurements: RV: 4.2 cm LV: 5.2 cm Septum: 1.0 cm Posterior wall: 1.0 cm Aortic root: 2.9 cm LA: 3.7 cm LVEF: 75% Doppler Measurements: AV: 1.9 meters per second LVOT: 1.3 meters per second LVOT diameter: 2.0 cm MV-E: 68, A: 96, E/A ratio: 0.7 Early mitral deceleration time: 280 milliseconds E prime: 5.6, A prime: 10.8, E/E prime ratio: 12 Pulmonary capillary wedge pressure: 14.6 mmHg PV: 1.0 meters per second Pulmonary artery acceleration time: 100 milliseconds PASP: 37 mmHg IVC: 1.4 cm COMMENT: Sinus bradycardia without intraventricular conduction disturbance. M-mode and two-dimensional echocardiography was performed with pulsed, continuous wave, color flow and tissue Doppler studies. Normal left ventricular size and wall thickness with hyperkinetic wall motion. Left atrial size upper limits of normal with Doppler evidence of an impairment of left ventricular (LV) diastolic function and current estimated mean left atrial pressure upper limits of normal. Right heart chamber sizes were upper limits of normal with normal wall motion and Doppler sign of mild pulmonary hypertension. Normal inferior vena cava (IVC) size and collapse against an elevated central venous pressure. Mild aortic valvular sclerosis without stenosis and only trace insufficiency. Normal aortic root size. Normal appearing and functioning mitral and tricuspid valves. No apparent intracardiac mass or pericardial effusion.
== END ==
LOC: M CARPUL 11:01
PROVIDERS: ATTEND Nurse Practitioner Family
DX: C25.9 Malignant neoplasm of pancreas, unspecified (principal); R00.1 Bradycardia, unspecified; I35.8 Other nonrheumatic aortic valve disorders

== ENCOUNTER 2019-03-02 11:02 | Emergency (ER) | payer MEDICARE, OTHER ==
[~2019-03-02] VITALS: Ht 165.1 cm; Wt 72.2 kg
[2019-03-02 12:19] LABS: HEMATOCRIT 44.6 % (42.0-52.0); HEMOGLOBIN 14.9 g/dl (13.5-17.5); MEAN CORPUSCULAR HEMOGLOBIN 30.3 pg (27.0-33.0); MEAN CORPUSCULAR HGB CONC 33.4 g/dl (32.0-36.5); MEAN CORPUSCULAR VOLUME 90.7 fl (80.0-96.0); RED BLOOD COUNT 4.92 10^6/uL (4.30-6.10)
[2019-03-02 12:20] LABS: PLATELET COUNT, AUTOMATED 80 10^3/uL (150-450); WHITE BLOOD COUNT 1.6 10^3/uL (4.0-10.0)
[2019-03-02] MEDS ORDERED: NS 1,000 ML IV SCH (12:22)
[2019-03-02] MEDS ORDERED: HYDROMORPHONE HCL 0.5 MG/ 0.5 ML SYRINGE (J1170 PER 1) IV ONE (12:30)
[2019-03-02 12:50] LABS: ALBUMIN 3.1 GM/DL (3.2-5.2); ALT/SGPT 20 U/L (12-78); AMYLASE 23 U/L (25-115); BILIRUBIN,DIRECT 0.4 MG/DL (0.0-0.2); BILIRUBIN,TOTAL 1.3 MG/DL (0.2-1.0); BLOOD UREA NITROGEN 22 MG/DL (7-18); CALCIUM LEVEL 8.7 MG/DL (8.8-10.2); CARBON DIOXIDE LEVEL 27 MEQ/L (21-32); CHLORIDE LEVEL 102 MEQ/L (98-107); CK-MB VALUE MASS < 1.0 NG/ML (<3.6); CPK CREATINE PHOSPHOKINASE 46 U/L (39-308); CREATININE FOR GFR 0.93 MG/DL (0.70-1.30); GLOMERULAR FILTRATION RATE > 60.0 (>49); GLUCOSE, FASTING 82 MG/DL (70-100); LIPASE 49 U/L (73-393); MB/CK RELATIVE INDEX 2.17 (< OR =4); POTASSIUM SERUM 4.2 MEQ/L (3.5-5.1); SODIUM LEVEL 137 MEQ/L (136-145); TOTAL PROTEIN 6.1 GM/DL (6.4-8.2); TROPONIN I < 0.02 NG/ML (< 0.10)
[2019-03-02 13:24] LABS: ATYPICAL LYMPH 3 % (0-5); EOSINOPHILS 2 % (0-3); LYMPHOCYTES 44 % (16-44); MONOCYTES 3 % (0-5); NEUTROPHILS 47 % (28-66); PLATELET ESTIMATE MARKED DECREASE (NORMAL)
--- NOTE | 2019-03-02 13:31 | REP ---
CHEST X-RAY: Two views. HISTORY: Abdomen pain. COMPARISON CHEST X-RAY: February 28, 2018. FINDINGS: The patient is status post prior median sternotomy. There are multiple coronary artery stent grafts visible. The heart is not enlarged. The pleural angles are sharp. Pulmonary vasculature is not increased. Thoracic aorta is calcific and somewhat tortuous. No bony abnormalities seen. There is minimal linear fibrosis left base. No infiltrate is seen. IMPRESSION: Status post prior median sternotomy and multiple coronary artery stent placements. Otherwise no acute disease. Minimal linear fibrosis left base. Electronically Signed by Gurpreet Castillo MD 03/02/2019 01:58 P
[2019-03-02] MEDS ORDERED: PANTOPRAZOLE 40MG INJ (PROTONIX) (C9113) IV ONE (13:45)
[2019-03-02] MEDS ORDERED: METOCLOPRAMIDE INJ 10MG/2ML VIAL (J2765) IV ONE (14:00)
[2019-03-02 15:47] VITALS: BP 123/68
--- NOTE | 2019-03-03 07:36 | ECGEPIP ---
[facility] - ED Test Date: 2019-03-02 Pat Name: MAIKOL SYLVESTER Department: Room: - Gender: Male Chain Puller: : 1950 Requested By: Tonny Ellington Order Number: [id number] Reading MD: Tonny Benton Measurements Intervals [place] Rate: 72 P: 57 TX: 166 QRS: 43 QRSD: 83 T: 28 QT: 375 QTc: 411 Interpretive Statements SINUS RHYTHM BASELINE ARTIFACT AFFECTS INTERPRETATION Electronically Signed on 03-03-2019 7:36:14 EDT by Tonny Benton
== END 2019-03-02 15:42 | disposition home or self-care (01) ==
LOC: M ED 11:02
DX: E86.0 Dehydration (principal); R06.6 Hiccough; C25.9 Malignant neoplasm of pancreas, unspecified; J45.909 Unspecified asthma, uncomplicated; N40.0 Benign prostatic hyperplasia without lower urinary tract symptoms; G47.30 Sleep apnea, unspecified; R73.03 Prediabetes; Z95.1 Presence of aortocoronary bypass graft; Z79.899 Other long term (current) drug therapy; Z79.82 Long term (current) use of aspirin; Z88.5 Allergy status to narcotic agent; Z88.6 Allergy status to analgesic agent; Z88.8 Allergy status to other drugs, medicaments and biological substances
CPT/HCPCS: 36415; 71046; 80048; 80076; 81001; 82150; 82550; 82553; 83690; 84484; 85025; 85049; 85055; 86850; 86900; 86901; 93005; 93041; 96360; 96361; 96374; 96375; 99284; C9113; J1170; J2765